=== PATIENT | male | born 1940 | race Caucasian/White ===

== ENCOUNTER 2019-10-23 12:57 | Inpatient (IN) ==
[2019-10-23] MEDS ORDERED: SODIUM CHLORIDE 0.9% 500 ML IV ONE (13:17)
--- NOTE | 2019-10-23 13:23 | Emergency Department Note ---
Impression & Plan SVT (supraventricular tachycardia), Syncope, Hypophosphatemia, Dehydration ED Provider Note NAME: MIREILLE JOHNSON AGE: 79 SEX: M ARRIVES VIA: Ambulance INFORMANT: Patient, ED PROVIDER(S): Jamel Madrid MD CHIEF COMPLAINT: SVT, syncope PLAN: Disposition: Admit MEDICAL DECISION MAKING: The patient is a pleasant 79-year-old gentleman who has not followed with a primary care doctor for many years denies any medical problems who presents emergency department after having syncopal episode when he was walking on [address] and was immediately assisted by bystanders with near immediate return of consciousness after he fell to the ground. Upon EMS evaluation he was found to be in SVT in the 180s with transient break after 6mg followed by 12 mg but with return to SVT. I did receive the med command call prior to arrival and instructed EMS to administer second 12 mg dose of adenosine but the patient again returned to SVT after transient break which did demonstrate sinus tachycardia. Patient has been given approximately 800 cc of IV fluids. He denies any recent fevers, chills, cough, congestion, nausea, vomiting, diarrhea, urinary symptoms. He denies any known contacts with individuals diagnosed with COVID-19. On arrival the patient reports fluttering in his chest but denies any chest pain shortness of breath, nausea, vomiting, diarrhea. He does report he has felt this fluttering in his chest for many years intermittently but never got it checked out. On arrival the patient is in no acute distress, afebrile with heart rate in the 170s and vital signs otherwise stable. The patient was coached to perform vagal maneuver with breath-holding and bearing down with subsequent conversion to sinus rhythm with frequent PVCs resolution of his sensation of fluttering. Patient's initial EKG demonstrated SVT with marked ST abnormalities that are likely rate related. Repeat EKG following conversion to sinus rhythm demonstrates improvement in prior ST abnormalities though with question of poor R wave progression versus LVH. Chest x-ray negative for acute process. WBC 4.7, nonspecific. H/H and platelets within normal limits. Chemistry without acidosis. BUN/Cr > 20 consistent with the patient's clinically dry appearance. Phosphorus 1.7 with repletion provided. Electrolytes and LFTs unremarkable. Initial troponin detectable but within normal limits at 0.019. Continue to remain in sinus rhythm and feeling improved after initial conversion to sinus rhythm. However, given the patient's syncope associated with SVT that was refractory to initial treatment with adenosine reasonable to admit the patient for further management. Patient is agreeable with this. Case was discussed with Adrianna Tellez, [facility] who will evaluate the patient for admission. Triage Nursing notes reviewed and agree them. Additional history obtained from EMS Prior medical records reviewed Vital Signs: reviewed and remarkable for tachycardia. Differential diagnosis: Vasovagal event, dehydration, infection, hypoglycemia, electrolyte abnormalities, cardiac sources, intracerebral event, pulmonary embolism, seizure, toxicologic, neurologic, as well as other pathologies. ER treatment provided: See below. Diagnostics interpreted by me: ECG 1304: SVT, 172 bpm, marked ST abnormality, no overt ST elevation, QTC 470, QRS 82. ECG 1310: Normal sinus rhythm with occasional PVCs, 88 bpm, poor R wave pr ogression versus LVH no overt ST elevation or depression, QTC 396, QRS 92. Cardiac Monitoring: An order for continuous cardiac monitoring was placed and demonstrated SVT, 88 bpm, PVCs Laboratory studies: See below Imaging studies: XR chest 1V portable CLINICAL HISTORY: Chest Pain dyspnea COMPARISON STUDY: No previous studies for comparison. FINDINGS: The bones soft tissues and hemidiaphragms are normal. The cardiome diastinal silhouette is normal. The lungs are clear. The pulmonary vasculature is normal. IMPRESSION: Negative chest. Consultation(s): Case was discussed with Adrianna Tellez, [facility] who will evaluate the patient for admission. HPI: The patient is a pleasant 79-year-old gentleman who has not followed with a primary care doctor for many years denies any medical problems who presents emergency department after having syncopal episode when he was walking on [place] and was immediately assisted by bystanders with near immediate return of consciousness after he fell to the ground. Upon EMS evaluation he was found to be in SVT in the 180s with transient break after 6mg followed by 12 mg but with return to SVT. I did receive the med command call prior to arrival and instructed EMS to administer second 12 mg dose of adenosine but the patient again returned to SVT after transient break which did demonstrate sinus tachycardia. Patient has been given approximately 800 cc of IV fluids. He denies any recent fevers, chills, cough, congestion, nausea, vomiting, diarrhea, urinary symptoms. He denies any known contacts with individuals diagnosed with COVID-19. ROS: See above HPI for pertinent positives & negatives. A total of 10 systems reviewed and were otherwise negative. PAST MEDICAL HISTORY:See Below PAST SURGICAL HISTORY:See Below FAMILY HISTORY:See Below SOCIAL HISTORY:See Below HOME MEDICATIONS:See Below ALLERGIES:See Below VITALS:See Below PHYSICAL EXAMINATION: GENERAL: Awake, alert, well-appearing, in no distress HENT: Normocephalic, atraumatic. Oropharynx with dry mucous membranes and otherwise unremarkable. EYES: Normal conjunctiva. Sclera non-icteric. NECK: Supple. No nuchal rigidity. FROM. No JVD. RESPIRATORY: Clear to auscultation. CARDIAC: Regular rate, normal rhythm. Extremities warm and well perfused. Pulses equal. ABDOMEN: Soft, non-distended. No tenderness to palpation. No rebound or guarding. No masses. RECTAL: Deferred. MUSCULOSKELETAL: Chest examination reveals no tenderness. The back is symmetrical on inspection without obvious abnormality. There is no CVA tenderness to palpation. No joint edema. LOWER EXTREMITIES: Calves are equal size bilaterally and non-tender. No edema. No discoloration. NEURO: Normal sensorium. No sensory or motor deficits noted. 5/5 strength and SILT x 4 extremities. Cerebellar function intact including [id number], alternating palms, [id number]. SKIN: No rash or jaundice noted. ED COURSE: Critical Care: I have personally spent greater than 35 minutes of critical care time in the direct management of this patient. This includes bedside care, interpretation of diagnostic studies, and testing, discussion with consultants, patient, and family members, and other required patient management activities. This 35 minutes is in excess of all separately billable procedures. Jamel Madrid MD Past Med/Surg History Surgical History No significant past surgical history Family History Brother Coronary heart disease [place] in age 50's Social History Preferred Language: [place] Communication Ability: Effective Member Of Technical Staff Required: No Beliefs That Will Affect Care: None Current Living Situation: Alone Feels Safe at Home: Yes Safety Concerns: Feels Safe At This Time Smoking Status: Never smoker Tobacco Type: smokeless tobacco ; Do You Dip or Chew Tobacco: Yes (for 60 years; quit in age 69's) ; Hx Alcohol Use: No Hx Substance Use: No Allergies Allergies Allergy/AdvReac Type Severity Reaction Status Date / Time No Known Allergies Allergy Unverified 10/23/19 13:53 Home Meds Home Medications Medication Instructions Recorded Confirmed naproxen sodium [Aleve] 220 mg PO BID PRN 10/23/19 10/23/19 Results & Data (ED) Vital Signs Vital Signs - 24 hr 10/23/19 13:04 10/23/19 13:10 10/23/19 13:15 Temperature 36.7 C Temperature Source Oral Pulse Rate 176 H 79 79 Pulse Rate from SpO2 Sensor 78 79 Respiratory Rate 18 18 19 Respiratory Effort / Characteristics Non-Labored Spontaneous Respiratory Depth Normal Blood Pressure 152/101 H 152/101 H 145/82 H Blood Pressure Mean 118 116 92 Blood Pressure Position Lying Pulse Oximetry 96 99 98 Oxygen Delivery Method Room Air Sepsis Recent Fever Within 48 Hours No Sepsis Action Taken by Nursing No Action Required 10/23/19 13:16 10/23/19 13:20 10/23/19 13:23 Temperature Temperature Source Pulse Rate 78 78 Pulse Rate from SpO2 Sensor 73 75 Respiratory Rate 19 15 Respiratory Effort / Characteristics Respiratory Depth Blood Pressure 137/87 Blood Pressure Mean 101 Blood Pressure Position Pulse Oximetry 98 97 96 Oxygen Delivery Method Room Air Sepsis Recent Fever Within 48 Hours Sepsis Action Taken by Nursing 10/23/19 13:25 10/23/19 13:30 10/23/19 13:31 Temperature Temperature Source Pulse Rate 78 83 76 Pulse Rate from SpO2 Sensor 80 69 77 Respiratory Rate 19 20 17 Respiratory Effort / Characteristics Respiratory Depth Blood Pressure 127/87 155/83 H Blood Pressure Mean 105 99 Blood Pressure Position Pulse Oximetry 96 98 98 Oxygen Delivery Method Sepsis Recent Fever Within 48 Hours Sepsis Action Taken by Nursing 10/23/19 13:36 10/23/19 13:40 10/23/19 13:43 Temperature Temperature Source Pulse Rate 79 77 76 Pulse Rate from SpO2 Sensor 75 77 76 Respiratory Rate 19 16 16 Respiratory Effort / Characteristics Respiratory Depth Blood Pressure 152/84 H 149/76 H 131/85 Blood Pressure Mean 94 84 98 Blood Pressure Position Pulse Oximetry 98 95 96 Oxygen Delivery Method Sepsis Recent Fever Within 48 Hours Sepsis Action Taken by Nursing 10/23/19 13:45 10/23/19 13:46 10/23/19 14:00 Temperature Temperature Source Pulse Rate 76 77 73 Pulse Rate from SpO2 Sensor 76 76 73 Respiratory Rate 16 15 15 Respiratory Effort / Characteristics Respiratory Depth Blood Pressure 140/85 145/80 H Blood Pressure Mean 98 98 Blood Pressure Position Pulse Oximetry 96 96 96 Oxygen Delivery Method Sepsis Recent Fever Within 48 Hours Sepsis Action Taken by Nursing 10/23/19 14:01 10/23/19 14:15 10/23/19 14:30 Temperature Temperature Source Pulse Rate 74 75 72 Pulse Rate from SpO2 Sensor 73 74 72 Respiratory Rate 15 14 15 Respiratory Effort / Characteristics Respiratory Depth Blood Pressure 130/80 146/92 H Blood Pressure Mean 92 112 Blood Pressure Position Pulse Oximetry 96 98 98 Oxygen Delivery Method Sepsis Recent Fever Within 48 Hours Sepsis Action Taken by Nursing 10/23/19 14:31 10/23/19 14:45 Temperature Temperature Source Pulse Rate 72 67 Pulse Rate from SpO2 Sensor 73 67 Respiratory Rate 23 17 Respiratory Effort / Characteristics Respiratory Depth Blood Pressure 131/79 Blood Pressure Mean 95 Blood Pressure Position Pulse Oximetry 98 97 Oxygen Delivery Method Sepsis Recent Fever Within 48 Hours Sepsis Action Taken by Nursing Laboratory Data Attestation: I reviewed the patient's lab results. Result diagrams: 10/23/19 13:15 10/23/19 13:15 Lab Results 10/23/19 10/23/19 10/23/19 Range/Units 13:15 13:15 13:15 WBC 4.75 L (4.8-10.8) K/uL RBC 4.93 (4.7-6.1) M/uL Hgb 15.1 (14.0-18.0) g/dL Hct 45.0 (42-52) % MCV 91.3 (80-100) fL MCH 30.6 (25-34) pg MCHC 33.6 (32-36) g/dL RDW Std Deviation 44.1 (36.4-46.3) fL RDW Coeff of Colin 13.4 (11.5-14.5) % Plt Count 236 (130-400) K/uL MPV 10.2 (7.4-10.4) fL Immature Gran % (Auto) 0.0 % Neut % (Auto) 66.8 % Lymph % (Auto) 14.7 % [place] % (Auto) 12.2 % Eos % (Auto) 5.7 % Baso % (Auto) 0.6 % Immature Gran # (Auto) 0.00 (0.00-0.02) K/uL Neut # (Auto) 3.17 (1.4-6.5) K/uL Lymph # (Auto) 0.70 L (1.2-3.4) K/uL [place] # (Auto) 0.58 (0.11-0.59) K/uL Eos # (Auto) 0.27 (0-0.5) K/uL Baso # (Auto) 0.03 (0-0.2) K/uL PT 10.6 (9.0-12.0) Seconds INR 1.0 (0.9-1.1) APTT 24.8 (21.0-31.0) Seconds PTT Ratio 0.9 Sodium 139 (136-145) mmol/L Potassium 4.2 (3.5-5.1) mmol/L Chloride 112 H (98-107) mmol/L Carbon Dioxide 21 (21-32) mmol/L Anion Gap 7.0 (3-11) BUN 33 H (7-18) mg/dl Creatinine 1.31 (0.6-1.4) mg/dl Est Cr Clr Drug Dosing 43.5 ml/min Est GFR ( Amer) 59.2 Est GFR (Non-Af Amer) 51.1 BUN/Creatinine Ratio 25.4 H (10-20) Glucose 116 H (70-99) mg/dl Calcium 8.8 (8.5-10.1) mg/dl Phosphorus 1.7 L (2.5-4.9) mg/dl Magnesium 2.2 (1.8-2.4) mg/dl Total Bilirubin 0.5 (0.2-1) mg/dl AST 21 (15-37) U/L ALT 18 (12-78) U/L Alkaline Phosphatase 77 (45-117) U/L Troponin I 0.019 (0-0.045) ng/ml Total Protein 7.0 (6.4-8.2) gm/dl Albumin 3.6 (3.4-5.0) gm/dl Globulin 3.4 (2.5-4.0) gm/dl Albumin/Globulin Ratio 1.0 (0.9-2) Lipase 164 (73-393) U/L TSH 1.790 (0.300-4.500) uIu/ml Administered Medications Heparin Sodium (Porcine) (Heparin Sodium (Porcine)) 5,000 units SQ Q8 SANDY Stop: 11/22/19 21:59 Last Admin: 10/23/19 20:46 Dose: 5,000 units Documented by: [id number] Cosigned by: [id number] Metoprolol Tartrate (Lopressor) 12.5 mg PO BID SANDY Stop: 11/22/19 20:59 Last Admin: 10/23/19 20:45 Dose: 12.5 mg Documented by: [id number] Discontinued Medications Sodium Chloride (Nss) 500 mls @ 999 mls/hr IV .Q31M ONE Stop: 10/23/19 13:47 Last Infusion: 10/23/19 14:49 Dose: 0 mls/hr Documented by: [id number] Admin: 10/23/19 14:10 Dose: 999 mls/hr Documented by: [id number] Potassium Phosphate 6 mmol/ (Sodium Chloride) 102 mls @ 88 mls/hr IV NOW ONE Stop: 10/23/19 16:09 Last Infusion: 10/23/19 16:31 Dose: 0 mls/hr Documented by: [id number] Admin: 10/23/19 15:21 Dose: 88 mls/hr Documented by: [id number] Potassium Phosphate 6 mmol/ (Sodium Chloride) 102 mls @ 88 mls/hr IV ONE ONE Stop: 10/23/19 19:54 Last Infusion: 10/23/19 21:00 Dose: 0 mls/hr Documented by: [id number] Admin: 10/23/19 19:50 Dose: 88 mls/hr Documented by: [id number] Potassium Phosphate (Potassium Phosphate Replace) 6 mmol IV NOW STA Stop: 10/23/19 14:13 Last Admin: 10/23/19 15:21 Dose: Not Given Documented by: [id number] Potassium Phosphate (Phospha 250 Neutral 155-852-130 Mg) 2 tab PO NOW STA Stop: 10/23/19 14:13 Last Admin: 10/23/19 14:59 Dose: 2 tab Documented by: [id number] Blood Pressure Blood Pressure Findings: Elevated blood pressure Blood Pressure Disposition: elevated BP felt to be situational Discharge Plan Visit Data *Final* Discharge Date/Time: 10/23/19 15:51 Chief Complaint: Cardiac Assessment ED Provider: Jamel Madrid Discharge Problem: SVT (supraventricular tachycardia), Syncope, Hypophosphatemia, Dehydration Patient Disposition: Still a Patient Discharge Instructions Interventions: ED Discharge Assessment Last Done: 10/23/19 15:51 Discharge Problem: Syncope Qualifiers: Syncope type: unspecified Qualified Code(s): R55 - Syncope and collapse
[2019-10-23 13:32] LABS: Basophils # (auto) 0.03 K/uL (0-0.2); Basophils % (auto) 0.6 %; Eosinophils # (auto) 0.27 K/uL (0-0.5); Eosinophils % (auto) 5.7 %; Hemoglobin 15.1 g/dL (14.0-18.0); Lymphocytes % (auto) 14.7 %; Mean Corpuscular Hemoglobin 30.6 pg (25-34); Mean Corpuscular Hgb Conc 33.6 g/dL (32-36); Mean Corpuscular Volume 91.3 fL (80-100); Mean Platelet Volume 10.2 fL (7.4-10.4); Monocytes # (auto) 0.58 K/uL (0.11-0.59); Monocytes % (auto) 12.2 %; Neutrophils # (auto) 3.17 K/uL (1.4-6.5); Neutrophils % (auto) 66.8 %; Platelet Count 236 K/uL (130-400); RDW Coefficient of Variation 13.4 % (11.5-14.5); RDW Standard Deviation 44.1 fL (36.4-46.3); Red Blood Count 4.93 M/uL (4.7-6.1); White Blood Count 4.75 K/uL (4.8-10.8)
[2019-10-23 13:47] LABS: Partial Thromboplastin Ratio 0.9; Partial Thromboplastin Time 24.8 Seconds (21.0-31.0); Prothrombin Time 10.6 Seconds (9.0-12.0)
[2019-10-23 13:49] LABS: Albumin Level 3.6 gm/dl (3.4-5.0); BUN Creatinine Ratio 25.4 (10-20); Calcium 8.8 mg/dl (8.5-10.1); Creatinine Clr Calc Pharmacy 43.5 ml/min; Est GFR (African American) 59.2; Est GFR (Non-African American) 51.1; Magnesium 2.2 mg/dl (1.8-2.4); Potassium 4.2 mmol/L (3.5-5.1)
[2019-10-23 14:00] LABS: Bilirubin,Total 0.5 mg/dl (0.2-1); Globulin 3.4 gm/dl (2.5-4.0); Phosphorus 1.7 mg/dl (2.5-4.9); Thyroid Stimulating Hormone 1.79 uIu/ml (0.300-4.500); Troponin I 0.019 ng/ml (0-0.045)
--- NOTE | 2019-10-23 14:03 | XRay Report ---
XR chest 1V portable CLINICAL HISTORY: Chest Pain dyspnea COMPARISON STUDY: No previous studies for comparison. FINDINGS: The bones soft tissues and hemidiaphragms are normal. The cardiomediastinal silhouette is n ormal. The lungs are clear. The pulmonary vasculature is normal. IMPRESSION: Negative chest. ACT 112: Negative or not required by law. The above report was generated using voice recognition software. It may contain grammatical, syntax or spelling errors. Electronically signed by: Azael Casey M.D. 10/23/2019 2:02 PM
[2019-10-23] MEDS ORDERED: POTASSIUM PHOS 3 MMOL/1 ML INFUSION IV STA ×2 (14:12→18:13)
[2019-10-23] MEDS ORDERED: POT PHOSPHATE MONOBASIC W/ SOD TAB PO STA (14:12)
--- NOTE | 2019-10-23 14:40 | Electrocardiogram Report ---
Test Reason : Blood Pressure : / mmHG Vent. Rate : 172 BPM Atrial Rate : 045 BPM P-R Int : 000 ms QRS Dur : 082 ms QT Int : 278 ms P-R-T Axes : 000 -23 164 degrees QTc Int : 470 ms Supraventricular tachycardia Marked ST abnormality, possible inferior subendocardial injury Abnormal ECG No previous ECGs available Confirmed by Ben Gore ([id number]) on 10/23/2019 2:40:30 PM Referred By: Confirmed By:Ben Gore
[2019-10-23] MEDS ORDERED: POTASSIUM PHOSPHATE 6 MMOL in 0.9 % SODIUM CHLORIDE 100 ML IV ONE ×2 (15:00→18:45)
--- NOTE | 2019-10-23 15:58 | History & Physical Report ---
Date of Service October 23, 2019 Assessment & Plan (1) SVT (supraventricular tachycardia): Pt is 79 y/o M without known significant PMH presented to ER via EMS for syncopal episode today. was walking outside when he started feeling dizzy and then pt woke up on ground. His neighbor saw him have syncopal episode and fall and was able to assist him up off the ground. EMS arrived and found pt in SVT. It is reported vagal maneuver attempted and unsuccessful and then pt was given adenosine 6mg with brief break in SVT, then followed by 12mg and additional 12mg adenosine with return to sinus rhythm. In ER pt afebrile, P: 176 down to 76, R: 18, BP: 152/101 to 140/85, 96% on RA. In ER pt with HR in 170's, SVT and vagal maneuver preformed with conversion to sinus rhythm. WBC: 4.75, H/H: 15/45, K: 4.2, Phosphate: 1.7, Magnesium: 2.2, TSH: 1.7, Troponin: 0.019 -Pt in current sinus rhythm. No further symptoms -Pt may be having paroxysmal SVT that has been previously undiagnosed with his description of intermittent symptoms over the years -Monitor on tele -trend troponin -echo -CBC, BMP, magnesium, phosphorus in am -Cardiology consult (2) Syncope: DDX: arrhythmia, symptomatic bradycardia, neurocardiogenic syncope, orthostatic hypotension No bradycardia noted while in ER -Monitor on tele (3) Hypophosphatemia: Phosphate: 1.7. -Replace and monitor DVT Prophylaxis -Heparin SQ DNR/DNI as per discussion with pt Does not have PCP for routine care Pt was seen and care coordinated with Charmaine. See addendum History of Present Illness Chief Complaint: syncope Primary Care Provider: NO PCP Pt is 79 y/o M without known significant PMH presented to ER via EMS for syncopal episode today. Pt reports for past 10 years has been having intermittent episodes of feeling hot, lightheaded/dizzy with "quivering" sensation to left chest that lasts approx 10 minutes and self resolves. Can occur with activity or rest. Pt states sometimes will have multiple episodes a day. Has never had any associated CP, SOB or syncope in past. Pt states today was fishing in the morning and had a hot and dizzy episode. Later today was walking outside when he started feeling dizzy and then pt woke up on ground. His neighbor saw him have syncopal episode and fall and was able to assist him up off the ground. EMS arrived and found pt in SVT. It is reported vagal maneuver attempted and unsuccessful and then pt was given adenosine 6mg with brief break in SVT, then followed by 12mg and additional 12mg adenosine with return to sinus rhythm. In ER pt with HR in 170's, SVT and vagal maneuver preformed with conversion to sinus rhythm. Pt states was having dizziness, sweats and palpitations but since arrival to ER that has resolved. Pt reports drinks 3 cups coffee daily. Takes [place] prn at HS for sleep and last took 2 days ago. Sometimes uses 1 OTC Aleve daily for leg pain. Denies other OTC med or herbal supplement use. Pt states not seen PCP since 2000. He reports in 1988 he had echo and exercise stress test for dizzy episodes, pt unsure of results. Denies any injury with fall. Denies fever/chills, diaphoresis, N/V/D/C, FIORE, vision changes, neck pain, orthopnea, cough, sore throat, choking, otalgia, rhinorrhea, abdominal pain, paresthesias, weakness, extremity weakness, extremity edema, rashes, urinary symptoms. Allergies Allergy/AdvReac Type Severity Reaction Status Date / Time No Known Allergies Allergy Unverified 10/23/19 13:53 Home Medications Home Medications Medication Instructions Recorded Confirmed Type naproxen sodium [Aleve] 220 mg PO BID PRN 10/23/19 10/23/19 History Past Med/Surg History Surgical History No significant past surgical history Family History Brother Coronary heart disease [place] in age 50's Social History Preferred Language: [place]inyar[place]anda Communication Ability: Effective Optimization Consultant Required: No Beliefs That Will Affect Care: None Current Living Situation: Alone Feels Safe at Home: Yes Safety Concerns: Feels Safe At This Time Smoking Status: Never smoker Tobacco Type: smokeless tobacco ; Do You Dip or Chew Tobacco: Yes (for 60 years; quit in age 69's) ; Hx Alcohol Use: No Hx Substance Use: No Review of Systems Review of Systems: All systems reviewed & are unremarkable except as noted in HPI & below Physical Exam Physical Exam: General: no distress, WDWN Head: normocephalic, atraumatic Eyes: PERRL, EOM's intact, conjunctiva non-injected, anicteric ENT: normal inspection external ears, nose, mucous membranes moist Neck: supple, trachea midline Lungs: clear, no respiratory distress, no wheezing/rhonchi/rales CV: RRR, no murmur, no pretibial edema Abd: normal BS, soft, non-tender Ext: no cyanosis, no calf tenderness Neuro: A&O x 3, no focal deficits noted, normal affect Skin: warm, dry Results & Data Results & Data ([facility]) Vital Signs (Past 12 Hours) Vital Signs Temp Pulse Resp BP Pulse Ox 10/23/19 14:45 67 17 131/79 97 10/23/19 14:31 72 23 98 10/23/19 14:30 72 15 146/92 H 98 10/23/19 14:15 75 14 130/80 98 10/23/19 14:01 74 15 96 10/23/19 14:00 73 15 145/80 H 96 10/23/19 13:46 77 15 96 10/23/19 13:45 76 16 140/85 96 10/23/19 13:43 76 16 131/85 96 10/23/19 13:40 77 16 149/76 H 95 10/23/19 13:36 79 19 152/84 H 98 10/23/19 13:31 76 17 155/83 H 98 10/23/19 13:30 83 20 98 10/23/19 13:25 78 19 127/87 96 10/23/19 13:23 96 10/23/19 13:20 78 15 137/87 97 10/23/19 13:16 78 19 98 10/23/19 13:15 79 19 145/82 H 98 10/23/19 13:10 79 18 152/101 H 99 10/23/19 13:04 36.7 C 176 H 18 152/101 H 96 Laboratory Results Short CBC 10/23/19 Range/Units 13:15 WBC 4.75 L (4.8-10.8) K/uL Hgb 15.1 (14.0-18.0) g/dL Hct 45.0 (42-52) % Plt Count 236 (130-400) K/uL BMP 10/23/19 13:15 Sodium 139 Potassium 4.2 Chloride 112 H Carbon Dioxide 21 BUN 33 H Creatinine 1.31 Glucose 116 H Calcium 8.8 Cardiac Enzymes 10/23/19 Range/Units 13:15 Troponin I 0.019 (0-0.045) ng/ml Liver Function 10/23/19 Range/Units 13:15 Total Bilirubin 0.5 (0.2-1) mg/dl AST 21 (15-37) U/L ALT 18 (12-78) U/L Alkaline Phosphatase 77 (45-117) U/L Albumin 3.6 (3.4-5.0) gm/dl Diagnostic Findings CXR: IMPRESSION: Negative chest. ECG Rate (beats per minute): 172 Rhythm: SVT Code Status & VTE Plan VTE Prophylaxis Plan VTE Prophylaxis will be ordered: Yes Supervising Physician Co-Signing Physician Notes I saw this patient with the physician diagnostic assistant, I participated in the history, physical, review of systems, and physical exam. I reviewed the medications with the patient and the physician diagnostic assistant and helped reconcile the medications. I helped take a detailed family and social history as well. I formulated the assessment and plan personally with the physician diagnostic assistant and went over it with the patient. ROS-No Headache, No Visual Changes, No Nausea, No Vomiting, No Fever, No Chills, No Neck Pain or Stiffness, No Chest Pain, No Palpitations, No SOB, No KEENAN, No Cough, No Sputum, No Wheezing, No Abdominal Pain, No Diarrhea, No Hematemesis, No Hemoptysis, No Unexpected Weight Loss, No Flank pain, No Melena, No Hematochezia, No Frequency, No Urgency, No Burning, No Hematuria, No Rashes, No Diaphoresis. Appetite is Normal Physical Exam Gen-AAO x 3, NAD, Afebrile Head-NCAT, EOMI, PERRLA, Anicteric Sclera, No Posterior Pharyngeal Erythema Neck-Supple, No JVD, No Thyromegaly, No Masses, No LAD, No Bruits Lungs-Clear to Auscultation Bilaterally, No Rales, No Rhonchi, No Wheezing, No Crepitus Chest-No S4, +S1, +S2, No S3, No Murmurs, No Rubs, No Gallops, No Ectopy Abdomen-Soft, Bowel Sounds Present, Non Tender, Non Distended, No Hepatomegaly, No Splenomegaly, No Palpable Masses, No Rebound, No Rigidity, No Guarding Musculoskeletal-Full Range of Motion Bilaterally, No CVAT Extremities-No Cyanosis, No Clubbing, No Edema Nuero-Cranial Nerves II-XII grossly intact, Motor WNL, DTRs WNL, Strength WNL, Non Focal Psych-Normal Mood
[2019-10-23] MEDS ORDERED: ACETAMINOPHEN 325 MG TAB PO PRN (16:35)
--- NOTE | 2019-10-23 16:49 | Electrocardiogram Report ---
Test Reason : Blood Pressure : / mmHG Vent. Rate : 088 BPM Atrial Rate : 088 BPM P-R Int : 174 ms QRS Dur : 092 ms QT Int : 328 ms P-R-T Axes : 048 -20 060 degrees QTc Int : 396 ms Sinus rhythm with occasional Premature ventricular complexes Poor R wave progression, consider anterior TN vs. lead placement vs. LVH Abnormal ECG When compared with ECG of 23-OCT-2019 13:04, Significant changes have occurred Confirmed by Ben Gore ([id number]) on 10/23/2019 4:48:47 PM Referred By: REFERRED SELF Confirmed By:Ben Gore
[2019-10-23] MEDS: METOPROLOL TARTRATE 25 MG TAB PO SCH (20:45)
[2019-10-23] MEDS: HEPARIN SOD 5,000 UNIT/0.5 ML VIAL SQ SCH (20:46)
[2019-10-24] MEDS: HEPARIN SOD 5,000 UNIT/0.5 ML VIAL SQ SCH ×3 (05:53→21:21)
[2019-10-24 06:00] LABS: Hematocrit (blood only) 42.6 % (42-52); Hemoglobin 14.1 g/dL (14.0-18.0); Mean Corpuscular Hemoglobin 29.9 pg (25-34); Mean Corpuscular Hgb Conc 33.1 g/dL (32-36); Mean Corpuscular Volume 90.4 fL (80-100); Mean Platelet Volume 9.8 fL (7.4-10.4); Platelet Count 227 K/uL (130-400); RDW Coefficient of Variation 13.2 % (11.5-14.5); RDW Standard Deviation 43.7 fL (36.4-46.3); Red Blood Count 4.71 M/uL (4.7-6.1); White Blood Count 4.06 K/uL (4.8-10.8)
[2019-10-24 06:40] LABS: Creatinine Clr Calc Pharmacy 59.2 ml/min; Est GFR (African American) 89.5; Est GFR (Non-African American) 77.3; Magnesium 1.9 mg/dl (1.8-2.4); Phosphorus 1.9 mg/dl (2.5-4.9)
[2019-10-24] MEDS: METOPROLOL TARTRATE 25 MG TAB PO SCH (08:36)
--- NOTE | 2019-10-24 09:43 | Cardiology Consultation ---
Date of Consultation October 24, 2019 Assessment & Plan (1) Syncope: (2) SVT (supraventricular tachycardia): Patient presents with SVT, syncope, that occurred yesterday while fishing. It is noted that yesterday was 1 of the most humid and warm days that we have had thus far this season. He notes years of dizziness, and transient "vibration" sensation in his chest, but this was his first syncopal episode. His troponin is minimally elevated at 0.067 and 0.053 ng/ml, which I do not think is surprising given the very high heart rates in the 170 to 180 bpm range which had been observed. Upsloping ST segment depression noted in the inferior lateral leads when he was having the tachycardia with very high rates, which is since normalized. Although the patient states that in the past he thinks he had "heart damage "his echocardiogram performed today reveals normal myocardial thickness, normal wall motion, no evidence of past NV, no cardiomyopathy. Metoprolol 12.5 mg twice daily was initiated last evening he has tolerated thus far. There has not been a documented recurrence of the narrow complex tachycardia, but a 14 beat run of wide-complex tachycardia occurred overnight during sleep, consistent with SVT with aberrant conduction versus nonsustained ventricular tachycardia. At present, I recommend ischemic evaluation with a pharmacologic nuclear stress test. I am hesitant to have him ambulate briskly on the treadmill for fear of recurrence of syncope on the treadmill. Given the significance of his arrhythmia, I think it is most prudent to proceed with sotalol initiation for its beta-parker and antiarrhythmic effect. His QTc on his present EKG was less than 400 ms. We will obtain another EKG now. Follow daily during planned 72-hour initiation of sotalol. History of Present Illness Reason for Consultation: Syncope, supraventricular tachycardia Attending Physician: Daniel Narayanan DO History of Present Illness Mr Tamayo is an 79 year old male seen in cardiology consultation per the request of Carolyn Guzmán PA-C and Dr Narayanan for the evaluation of syncope and supraventricular tachycardia. The patient states that he does not routinely follow with a physician. He has not on any medications. He lives in a camper and enjoys activities such as fishing. He states that for about 10 years he has been having episodes of on and off again dizziness. Yesterday he was fishing in the heat and had several episodes of feeling hot and dizzy. Yesterday he had 1 or 2 episodes while he was fishing. He went home, while talking to a neighbor, he had recurrence of his symptoms, and subsequently passed out. The next thing he knew he found himself on the ground. This is the first time he recalls having had such an episode that became severe enough that he passed out. He regained consciousness immediately. EMS arrived and he was found to be in a narrow complex tachycardia consistent with supraventricular tachycardia with rate of 180 bpm. His heart rate subsequently slowed down after 6 mg of IV adenosine, and then he received 12 mg of IV adenosine, with subsequent return to SVT. A second dose of 12 mg of adenosine was apparently administered, with ongoing SVT. He received IV fluids. When he arrived, per the emergency room notes he was in no acute distress but had persistent tachycardia, narrow complex tachycardia consistent with SVT as noted on recorded EKG 170 bpm range and with vagal maneuver, he converted to sinus rhythm with PVCs. He was admitted to telemetry for further assessment, with no recurrence of the narrow complex tachycardia last evening. He did have a 14 beat run of wide- complex tachycardia overnight last night with rate of 142 bpm consistent with possible nonsustained ventricular tachycardia versus supraventricular tachycardia with aberrant conduction. He had no chest pressure during the tachycardia event, but did note a sensation of feeling like his chest was "vibrating ". He states he has this from time to time especially when he lays down to go to sleep. He denies any recent anginal type symptoms, and denies any angina at the time of the event yesterday. He describes having his heart assessed in the past. 30 years ago he recalls being seen by a provider in [place]. He describes having had a "sonogram "of his heart with "27% damage "per his recollection. He has never had a heart catheterization. Past Medical History: No documented past medical history. Family History: Patient with 2 brothers both of whom he believes due to myocardial infarction in their 50s Social History: Lifelong non-smoker. Used to drink alcohol, but quit many years ago. Previous smokeless tobacco use, but quit several years ago. He lives by himself, independently, in a camper. 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 Allergies Allergy/AdvReac Type Severity Reaction Status Date / Time No Known Allergies Allergy Unverified 10/23/19 13:53 Home Medications Home Medications Medication Instructions Recorded Confirmed Type naproxen sodium [Aleve] 220 mg PO BID PRN 10/23/19 10/23/19 History Patient History Surgical History No significant past surgical history Family History Brother Coronary heart disease NV in age 50's Social History Preferred Language: Malay Communication Ability: Effective Computer Scientist Required: No Beliefs That Will Affect Care: None Current Living Situation: Alone Feels Safe at Home: Yes Safety Concerns: Feels Safe At This Time Smoking Status: Never smoker Tobacco Type: smokeless tobacco ; Do You Dip or Chew Tobacco: Yes (for 60 years; quit in age 69's) ; Hx Alcohol Use: No Hx Substance Use: No Review of Systems Review of Systems: All systems reviewed & are unremarkable except as noted in HPI & below Physical Exam Physical Exam: Temp Pulse Resp BP Pulse Ox 36.3 C L 62 16 155/89 H 97 10/24/19 07:38 10/24/19 07:38 10/24/19 07:38 10/24/19 07:38 10/24/19 07:38 Constitutional: WD/WN, vitals as above Neck: trachea midline, no thyromegaly Respiratory: normal respiratory effort, lungs clear to auscultation Cardiovascular: RRR, no murmur, no edema Neurologic: PERRL, EOMI, accommodation nl, no face palsy, no dysarthria Psychiatric: A+Ox3, euthymic affect Results & Data ([facility]) Vital Signs (Past 12 Hours) Vital Signs Temp Pulse Pulse Resp BP Pulse Ox 10/24/19 07:38 36.3 C L 62 16 155/89 H 97 10/24/19 04:07 36.9 C 60 18 153/78 H 99 10/23/19 23:46 37.0 C 57 L 18 148/74 H 96 10/23/19 23:39 63 Laboratory Results Cardiac Enzymes 10/23/19 10/23/19 10/24/19 Range/Units 13:15 19:05 01:02 AST 21 (15-37) U/L Troponin I 0.019 0.067 H* 0.053 H* (0-0.045) ng/ml Coagulation 10/23/19 Range/Units 13:15 PT 10.6 (9.0-12.0) Seconds APTT 24.8 (21.0-31.0) Seconds CBC 10/23/19 10/24/19 Range/Units 13:15 05:43 WBC 4.75 L 4.06 L (4.8-10.8) K/uL RBC 4.93 4.71 (4.7-6.1) M/uL Hgb 15.1 14.1 (14.0-18.0) g/dL Hct 45.0 42.6 (42-52) % Plt Count 236 227 (130-400) K/uL Neut # (Auto) 3.17 (1.4-6.5) K/uL Lymph # (Auto) 0.70 L (1.2-3.4) K/uL [place] # (Auto) 0.58 (0.11-0.59) K/uL Eos # (Auto) 0.27 (0-0.5) K/uL Baso # (Auto) 0.03 (0-0.2) K/uL Comprehensive Metabolic Panel 10/23/19 10/24/19 Range/Units 13:15 05:43 Sodium 139 141 (136-145) mmol/L Potassium 4.2 4.0 (3.5-5.1) mmol/L Chloride 112 H 112 H (98-107) mmol/L Carbon Dioxide 21 24 (21-32) mmol/L BUN 33 H 25 H (7-18) mg/dl Creatinine 1.31 0.93 D (0.6-1.4) mg/dl Glucose 116 H 90 (70-99) mg/dl Calcium 8.8 8.0 L (8.5-10.1) mg/dl AST 21 (15-37) U/L ALT 18 (12-78) U/L Alkaline Phosphatase 77 (45-117) U/L Total Protein 7.0 (6.4-8.2) gm/dl Albumin 3.6 (3.4-5.0) gm/dl Intake and Output 10/23/19 10/24/19 10/24/19 22:59 06:59 14:59 Intake Total 324 / 1824 Output Total 350 / 550 200 / 550 Balance -1273 -1273 Intake: IV 204 1704 Potassium Phosphate 6 Mmol In Sodium Chloride 100 ml @ 88 mls /hr IV ONE ONE Rx#:[id number] Oral 120 / 120 Output: Urine 350 / 550 200 / 550 Stool 0 / 0 Emesis 0 / 0 Other: Weight 72 kg 69 kg Diagnostic Findings Echocardiogram performed this morning reviewed independently revealed normal myocardial thickness, normal LV wall motion, normal LVEF. EKG performed 10/23/2019 at 1304 and reviewed independently revealed supraventricular tachycardia 170 bpm, with upsloping ST segment depression noted in the inferior and lateral leads. Repeat EKG performed 10/23/2019 at 1310: Sinus rhythm 88 bpm, with occasional PVCs, poor R wave progression. Previously noted ST segment depression has resolved. Medications Administered Current Inpatient Medications Acetaminophen (Tylenol) 650 mg PO Q4H PRN PRN Reason: Pain or Fever Stop: 11/22/19 16:34 Heparin Sodium (Porcine) (Heparin Sodium (Porcine)) 5,000 units SQ Q8 [facility] Stop: 11/22/19 21:59 Last Admin: 10/24/19 05:53 Dose: 5,000 units Documented by: Metoprolol Tartrate (Lopressor) 12.5 mg PO BID [facility] Stop: 11/22/19 20:59 Last Admin: 10/24/19 08:36 Dose: 12.5 mg Documented by: (1) Syncope Syncope type: unspecified Qualified Code(s): R55 - Syncope and collapse
--- NOTE | 2019-10-24 10:53 | Hospitalist Progress Note ---
Date of Service October 24, 2019 Assessment & Plan (1) SVT (supraventricular tachycardia): Pt is 79 y/o M without known significant PMH presented to ER via EMS for syncopal episode today. was walking outside when he started feeling dizzy and then pt woke up on ground. His neighbor saw him have syncopal episode and fall and was able to assist him up off the ground. EMS arrived and found pt in SVT. It is reported vagal maneuver attempted and unsuccessful and then pt was given adenosine 6mg with brief break in SVT, then followed by 12mg and additional 12mg adenosine with return to sinus rhythm. In ER pt afebrile, P: 176 down to 76, R: 18, BP: 152/101 to 140/85, 96% on RA. In ER pt with HR in 170's, SVT and vagal maneuver preformed with conversion to sinus rhythm. WBC: 4.75, H/H: 15/45, K: 4.2, Phosphate: 1.7, Magnesium: 2.2, TSH: 1.7, Troponin: 0.019 -14 beat run of wide-complex tachycardia occurred overnight during sleep, consistent with SVT with aberrant conduction versus nonsustained ventricular tachycardia. Nuc Stress test per Dr Mcintyre -Pt in current sinus rhythm. No further symptoms -Pt may be having paroxysmal SVT that has been previously undiagnosed with his description of intermittent symptoms over the years -Monitor on tele -trend troponin -echo -CBC, BMP, magnesium, phosphorus in am -Cardiology on case (2) Syncope: DDX: arrhythmia, symptomatic bradycardia, NSVT, neurocardiogenic syncope, orthostatic hypotension (3) Hypophosphatemia: Phosphate: Low -Replace and monitor DVT Prophylaxis -Heparin SQ DNR/DNI as per discussion with pt Does not have PCP for routine care ROS-No Headache, No Visual Changes, No Nausea, No Vomiting, No Fever, No Chills, No Neck Pain or Stiffness, No Chest Pain, No Palpitations, No SOB, No KEENAN, No Cough, No Sputum, No Wheezing, No Abdominal Pain, No Diarrhea, No Hematemesis, No Hemoptysis, No Unexpected Weight Loss, No Flank pain, No Melena, No Hematochezia, No Frequency, No Urgency, No Burning, No Hematuria, No Rashes, No Diaphoresis. Appetite is Normal Physical Exam Gen-AAO x 3, NAD, Afebrile Head-NCAT, EOMI, PERRLA, Anicteric Sclera, No Posterior Pharyngeal Erythema Neck-Supple, No JVD, No Thyromegaly, No Masses, No LAD, No Bruits Lungs-Clear to Auscultation Bilaterally, No Rales, No Rhonchi, No Wheezing, No Crepitus Chest-No S4, +S1, +S2, No S3, No Murmurs, No Rubs, No Gallops, No Ectopy Abdomen-Soft, Bowel Sounds Present, Non Tender, Non Distended, No Hepatomegaly, No Splenomegaly, No Palpable Masses, No Rebound, No Rigidity, No Guarding Musculoskeletal-Full Range of Motion Bilaterally, No CVAT Extremities-No Cyanosis, No Clubbing, No Edema Nuero-Cranial Nerves II-XII grossly intact, Motor WNL, DTRs WNL, Strength WNL, Non Focal Psych-Normal Mood Admission and Anticipated Discharge Date Admission Date: October 23, 2019 Results & Data Results & Data ([facility]) Vital Signs (Past 12 Hours) Vital Signs Temp Pulse Pulse Resp BP Pulse Ox 10/24/19 08:00 62 10/24/19 07:38 36.3 C L 62 16 155/89 H 97 10/24/19 04:07 36.9 C 60 18 153/78 H 99 10/23/19 23:46 37.0 C 57 L 18 148/74 H 96 10/23/19 23:39 63 (1) Syncope Syncope type: unspecified Qualified Code(s): R55 - Syncope and collapse
[2019-10-24] MEDS: POT PHOSPHATE MONOBASIC W/ SOD TAB PO SCH ×3 (15:34→21:21)
[2019-10-24] MEDS: SOTALOL HCL 80 MG TAB PO SCH (21:21)
[2019-10-25 04:08] LABS: Appearance Urine Clear (Clear); Bilirubin Urine Negative (Negative); Blood Urine Negative (Negative); Color Urine Yellow; Glucose Urine UA Negative (Negative); Ketones Urine 1+ (Negative); Leukocyte Esterase Urine Negative (Negative); Nitrite Urine Negative (Negative); Protein Urine Negative (Negative); Specific Gravity Urine 1.014 (1.000-1.030); Urobilinogen Urine Negative (Negative)
[2019-10-25] MEDS: HEPARIN SOD 5,000 UNIT/0.5 ML VIAL SQ SCH ×3 (05:39→20:37)
--- NOTE | 2019-10-25 06:24 | Electrocardiogram Report ---
Test Reason : Blood Pressure : / mmHG Vent. Rate : 056 BPM Atrial Rate : 056 BPM P-R Int : 172 ms QRS Dur : 092 ms QT Int : 432 ms P-R-T Axes : 053 -30 009 degrees QTc Int : 416 ms Sinus bradycardia Left axis deviation Abnormal ECG When compared with ECG of 23-OCT-2019 13:10, Premature ventricular complexes are no longer Present Vent. rate has decreased BY 32 BPM T wave inversion now evident in Inferior leads Confirmed by William Garcia ([id number]) on 10/25/2019 6:24:32 AM Referred By: REFERRED SELF Confirmed By:William Garcia
[2019-10-25 06:32] LABS: Hematocrit (blood only) 43.3 % (42-52); Hemoglobin 14.7 g/dL (14.0-18.0); Mean Corpuscular Hemoglobin 30.8 pg (25-34); Mean Corpuscular Hgb Conc 33.9 g/dL (32-36); Mean Corpuscular Volume 90.8 fL (80-100); Platelet Count 243 K/uL (130-400); RDW Coefficient of Variation 13.2 % (11.5-14.5); RDW Standard Deviation 43.7 fL (36.4-46.3); Red Blood Count 4.77 M/uL (4.7-6.1); White Blood Count 4.74 K/uL (4.8-10.8)
[2019-10-25 07:09] LABS: Albumin Level 3.1 gm/dl (3.4-5.0); BUN Creatinine Ratio 21.3 (10-20); Calcium 8.7 mg/dl (8.5-10.1); Creatinine Clr Calc Pharmacy 56.2 ml/min; Est GFR (African American) 84.1; Est GFR (Non-African American) 72.5
[2019-10-25 07:12] LABS: Bilirubin,Total 0.7 mg/dl (0.2-1); Globulin 3.1 gm/dl (2.5-4.0); Total Protein 6.2 gm/dl (6.4-8.2)
[2019-10-25] MEDS ORDERED: METOPROLOL TARTRATE 1 MG/ML VIAL IV STA (07:24)
[2019-10-25] MEDS ORDERED: METOPROLOL TARTRATE 1 MG/ML VIAL IV ONE (07:26)
--- NOTE | 2019-10-25 07:27 | Hospitalist Progress Note ---
Date of Service October 25, 2019 Assessment & Plan (1) SVT (supraventricular tachycardia): Pt is 79 y/o M without known significant PMH presented to ER via EMS for syncopal episode today. was walking outside when he started feeling dizzy and then pt woke up on ground. His neighbor saw him have syncopal episode and fall and was able to assist him up off the ground. EMS arrived and found pt in SVT. It is reported vagal maneuver attempted and unsuccessful and then pt was given adenosine 6mg with brief break in SVT, then followed by 12mg and additional 12mg adenosine with return to sinus rhythm. In ER pt afebrile, P: 176 down to 76, R: 18, BP: 152/101 to 140/85, 96% on RA. In ER pt with HR in 170's, SVT and vagal maneuver preformed with conversion to sinus rhythm. WBC: 4.75, H/H: 15/45, K: 4.2, Phosphate: 1.7, Magnesium: 2.2, TSH: 1.7, Troponin: 0.019 -14 beat run of wide-complex tachycardia occurred overnight 10/22 during sleep, consistent with SVT with aberrant conduction versus nonsustained ventricular tachycardia. Nuc Stress test per Dr Mcintyre today 10/24 -This morning I got called by RN that HR in 140s -Pt may be having paroxysmal SVT that has been previously undiagnosed with his description of intermittent symptoms over the years -Cardiology on case -NSS c K ordered (2) Syncope: w/u in progress (3) Hypophosphatemia: Phosphate: Low -Replace and monitor DVT Prophylaxis -Heparin SQ DNR/DNI Does not have PCP for routine care Will f/u c Cards on DC Labs checked ROS-No Headache, No Visual Changes, No Nausea, No Vomiting, No Fever, No Chills, No Neck Pain or Stiffness, No Chest Pain, No Palpitations, No SOB, No KEENAN, No Cough, No Sputum, No Wheezing, No Abdominal Pain, No Diarrhea, No Hematemesis, No Hemoptysis, No Unexpected Weight Loss, No Flank pain, No Melena, No Hematochezia, No Frequency, No Urgency, No Burning, No Hematuria, No Rashes, No Diaphoresis. Appetite is Normal Physical Exam Gen-AAO x 3, NAD, Afebrile Head-NCAT, EOMI, PERRLA, Anicteric Sclera, No Posterior Pharyngeal Erythema Neck-Supple, No JVD, No Thyromegaly, No Masses, No LAD, No Bruits Lungs-Clear to Auscultation Bilaterally, No Rales, No Rhonchi, No Wheezing, No Crepitus Chest-No S4, +S1, +S2, No S3, No Murmurs, No Rubs, No Gallops, No Ectopy Abdomen-Soft, Bowel Sounds Present, Non Tender, Non Distended, No Hepatomegaly, No Splenomegaly, No Palpable Masses, No Rebound, No Rigidity, No Guarding Musculoskeletal-Full Range of Motion Bilaterally, No CVAT Extremities-No Cyanosis, No Clubbing, No Edema Nuero-Cranial Nerves II-XII grossly intact, Motor WNL, DTRs WNL, Strength WNL, Non Focal Psych-Normal Mood Admission and Anticipated Discharge Date Admission Date: October 23, 2019 Results & Data Results & Data ([facility]) Vital Signs (Past 12 Hours) Vital Signs Temp Pulse Resp BP Pulse Ox 10/25/19 07:18 146 H 113/82 10/25/19 07:02 36.7 C 51 L 19 135/72 98 10/25/19 03:46 36.4 C L 60 16 122/68 97 10/24/19 23:09 36.9 C 60 16 107/60 96 10/24/19 21:30 65 125/76 (1) Syncope Syncope type: unspecified Qualified Code(s): R55 - Syncope and collapse
[2019-10-25] MEDS ORDERED: ADENOSINE IV SOLN 3 MG/ML 2 ML VIAL IV ONE (08:13)
[2019-10-25] MEDS ORDERED: ADENOSINE IV SOLN 3 MG/ML 2 ML VIAL IV STA ×4 (08:15→08:29)
[2019-10-25] MEDS: NSS + 20MEQ KCL 20 MEQ/1,000 ML BAG IV SCH ×2 (08:27→20:31)
--- NOTE | 2019-10-25 08:40 | Cardiology Progress Note ---
Date of Service October 25, 2019 Assessment & Plan (1) Syncope and collapse: (2) SVT (supraventricular tachycardia): Recurrent narrow complex tachycardia, onset 7:09 am. EKG performed prior this am, SB at 55 bpm, QTc 447 ms. Tachycardia refractory to metoprolol tartrate 5 mg IV x 1. At bedside personally at 8:20 am, 6 mg of IV adenosine administered without effect. 8:24 am, 12 mg IV adenosine with conversion to SB in 50's. No flutter waves. Telemetry consistent with SVT. Received sotalol 80 mg x 2 doses yesterday. Pt without any symptoms of angina with the event this am. At this time will observe for 30 minutes , and if HR stable proceed with 3rd dose of sotalol. Will discuss case with EP. Cancel nuclear stress test, yield felt to be low, as this is felt to be an arrhythmia issue not due to CAD. Continue SQ heparin for DVT prophylaxis. Subjective Patient comfortable. SR/SB in 50s overnight, At 7:09 am , recurrent onset of narrow complex tachycardia noted. Pt reported "quivering" in chest, same as past chronic episodes at home. Metoprolol tartrate 5 mg IV administred by nursing per my telephone order without effect. SVT at 130-150 bpm persisted. Physical Exam Physical Exam: Temp Pulse Resp BP Pulse Ox 36.7 C 64 19 129/71 98 10/25/19 07:02 10/25/19 08:28 10/25/19 07:02 10/25/19 08:28 10/25/19 07:02 Constitutional: WD/WN, vitals as above Respiratory: normal respiratory effort, lungs clear to auscultation Cardiovascular: Heart Sounds: no murmur tachycardic, resolved with adenosine Gastrointestinal (Abdomen): normal bowel sounds, soft, nontender, no hepatosplenomegaly Neurologic: PERRL, EOMI, accommodation nl, no face palsy, no dysarthria Results & Data Vital Signs (Past 12 Hours) Vital Signs Temp Pulse Pulse Resp BP BP Pulse Ox 10/25/19 08:28 64 129/71 10/25/19 07:57 108/75 10/25/19 07:34 148 H 115/76 10/25/19 07:18 146 H 113/82 10/25/19 07:02 36.7 C 51 L 19 135/72 98 05/29/20 03:46 36.4 C L 60 16 122/68 97 10/24/19 23:09 36.9 C 60 16 107/60 96 10/24/19 21:30 65 125/76 Laboratory Results Cardiac Enzymes 10/25/19 Range/Units 05:37 AST 15 (15-37) U/L CBC 10/25/19 Range/Units 05:37 WBC 4.74 L (4.8-10.8) K/uL RBC 4.77 (4.7-6.1) M/uL Hgb 14.7 (14.0-18.0) g/dL Hct 43.3 (42-52) % Plt Count 243 (130-400) K/uL Comprehensive Metabolic Panel 10/25/19 Range/Units 05:37 Sodium 139 (136-145) mmol/L Potassium 4.0 (3.5-5.1) mmol/L Chloride 108 H (98-107) mmol/L Carbon Dioxide 25 (21-32) mmol/L BUN 21 H (7-18) mg/dl Creatinine 0.98 (0.6-1.4) mg/dl Glucose 90 (70-99) mg/dl Calcium 8.7 (8.5-10.1) mg/dl AST 15 (15-37) U/L ALT 14 (12-78) U/L Alkaline Phosphatase 64 (45-117) U/L Total Protein 6.2 L (6.4-8.2) gm/dl Albumin 3.1 L (3.4-5.0) gm/dl Intake and Output 10/24/19 10/25/19 10/25/19 22:59 06:59 14:59 Intake Total 150 / 420 Output Total 575 / 1625 450 / 1625 Balance -425 / -1205 -450 / -1205 Intake: Oral 150 / 420 Output: Urine 575 / 1625 450 / 1625 Emesis 0 / 0 Other: Weight 67.8 kg
[2019-10-25] MEDS: SOTALOL HCL 80 MG TAB PO SCH ×2 (09:19→20:37)
[2019-10-25] MEDS: POT PHOSPHATE MONOBASIC W/ SOD TAB PO SCH ×4 (09:19→20:36)
--- NOTE | 2019-10-25 10:11 | Cardiology Consultation ---
Date of Consultation October 25, 2019 Assessment & Plan (1) Syncope and collapse: His presentation with syncope was almost certainly related to his SVT with an additional component of either dehydration from being out for a long time fishing or simply being on his feet for long period of time. It is entirely consistent with that including the rapid heart rate (his heart rate was much faster on arrival in the emergency room than it was when he had his episode this morning). (2) SVT (supraventricular tachycardia): He has a well-documented supraventricular tachycardia which he has had for probably on the order of 10 years, although it is worse over the last 6 months and especially more recently where he gets very frequent episodes including multiple episodes on the day he presented as well as an episode here in the hospital. 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 I discussed options with him including medical therapy and ablation. Given the rapid heart rate and the episode of syncope almost certainly related to the SVT, as well as his desire not to take medications on an ongoing basis, as well as the good success of ablation for this type of arrhythmia I think ablation is a very reasonable option. I have tentatively scheduled that for Monday and will discuss it in further detail with him prior to that. In the meantime he is on antiarrhythmic therapy and I will leave that for now to avoid further episodes over the weekend. History of Present Illness Reason for Consultation: SVT Requesting Physician: Dr. Mcintyre Attending Physician: Daniel Narayanan, History of Present Illness This is an 79-year-old male with a history of palpitations consistent with SVT however only diagnosed this visit evidently. He recalls a vibrating or fluttering sensation in his chest over the last 6 months or so, it has been becoming more frequent and while fishing on October 23, 2019 he had 4 episodes of it. After the third episode he went back home and was standing talking to his neighbor when he had it again, and transiently had syncope. He does not recall having that severe an episode before. Here in the emergency room he was identified as having SVT at a rate of 172 bpm, it was difficult to terminate both in the ambulance and here. He also had a recurrent episode here this morning. He does recall as a child having episodes of presyncope or possibly syncope while getting his haircut, it sounds as though that was related to having the drape around his neck tight and sounds like it might of been a vagal reaction from carotid pressure although it was never specifically diagnosed. He also describes a feeling of lightheadedness but perhaps not the vibrating or fluttering sensation over the last 10 years which he seems to feel it is the same thing as he is having now, although he seems to describe it a little bit differently. He also recalls when he was in the in 1957 he was told he had a heart murmur but no further evaluation and no problems related to it. Allergies Allergy/AdvReac Type Severity Reaction Status Date / Time No Known Allergies Allergy Unverified 10/23/19 13:53 Home Medications Home Medications Medication Instructions Recorded Confirmed Type naproxen sodium [Aleve] 220 mg PO BID PRN 10/23/19 10/23/19 History Patient History Surgical History No significant past surgical history Family History Brother Coronary heart disease [place] in age 50's Social History Preferred Language: Japanese Communication Ability: Effective Transformation Specialist Required: No Beliefs That Will Affect Care: None marital status: Current Living Situation: Alone Feels Safe at Home: Yes Safety Concerns: Feels Safe At This Time Smoking Status: Never smoker Tobacco Type: smokeless tobacco ; Do You Dip or Chew Tobacco: Yes (for 60 years; quit in age 69's) ; Hx Alcohol Use: No Hx Substance Use: No Physical Exam Physical Exam: Constitutional: Alert, cooperative and in no distress. HEENT: Unremarkable Neck: No jugular venous distention, carotid pulses are normal and equal bilaterally without bruits. Pulmonary: Clear to auscultation bilaterally. Cardiac: Regular rhythm with no murmur, gallop or rub. Abdomen: Soft, nontender with normal bowel sounds. Extremities: No edema. Distal pulses intact. Neurologic: No focal findings. Gait is steady. Skin: No rash, ecchymoses or petechiae. Results & Data ([facility]) Vital Signs (Past 12 Hours) Vital Signs Temp Pulse Pulse Resp BP BP Pulse Ox 10/25/19 08:28 64 129/71 10/25/19 08:20 113/82 10/25/19 07:57 108/75 10/25/19 07:34 148 H 115/76 10/25/19 07:18 146 H 113/82 10/25/19 07:02 36.7 C 51 L 19 135/72 98 10/25/19 03:46 36.4 C L 60 16 122/68 97 10/24/19 23:09 36.9 C 60 16 107/60 96 Laboratory Results Cardiac Enzymes 10/25/19 Range/Units 05:37 AST 15 (15-37) U/L CBC 10/25/19 Range/Units 05:37 WBC 4.74 L (4.8-10.8) K/uL RBC 4.77 (4.7-6.1) M/uL Hgb 14.7 (14.0-18.0) g/dL Hct 43.3 (42-52) % Plt Count 243 (130-400) K/uL Comprehensive Metabolic Panel 10/25/19 Range/Units 05:37 Sodium 139 (136-145) mmol/L Potassium 4.0 (3.5-5.1) mmol/L Chloride 108 H (98-107) mmol/L Carbon Dioxide 25 (21-32) mmol/L BUN 21 H (7-18) mg/dl Creatinine 0.98 (0.6-1.4) mg/dl Glucose 90 (70-99) mg/dl Calcium 8.7 (8.5-10.1) mg/dl AST 15 (15-37) U/L ALT 14 (12-78) U/L Alkaline Phosphatase 64 (45-117) U/L Total Protein 6.2 L (6.4-8.2) gm/dl Albumin 3.1 L (3.4-5.0) gm/dl Intake and Output 10/24/19 10/25/19 10/25/19 22:59 06:59 14:59 Intake Total 150 / 420 Output Total 575 / 1625 450 / 1625 Balance -425 / -1205 -450 / -1205 Intake: Oral 150 / 420 Output: Urine 575 / 1625 450 / 1625 Emesis 0 / 0 Other: Weight 67.8 kg Diagnostic Findings His presenting electrocardiogram on October 23, 2019 at 1304 shows a narrow complex tachycardia at a rate of 172 bpm. There appears to be atrial activity immediately following the QRS complex. There is lateral ST depression as well. A subsequent electrocardiogram done 4 minutes later shows sinus rhythm at 88 bpm with correction of the ST-T abnormalities. The ND interval was normal at 174 ms and there is no evidence of preexcitation. Another electrocardiogram done during SVT on October 25, 2019 at 7:20 AM shows a very similar SVT at a rate of 148 bpm with atrial activity once again present immediately after the QRS complex. Review of telemetry shows an episode of SVT this morning lasting about an hour, the rate is around 150 bpm varying only slightly. It starts with a premature atrial beat and terminates with antegrade block in the AV node (after receiving adenosine). PG Care Time/CCT Total # of Minutes Spent Total Time Spent with Patient: Total time spent is greater than 50% in coordination of care (as documented) at patient's floor/unit and/or counseling patient: Coding Level of Care Code 52945 Initial Inpt Care Lvl 3 Diagnoses Syncope and collapse R55 SVT (supraventricular tachycardia) I47.1
[2019-10-25] MEDS ORDERED: Nursing to Pharmacy Communication ONE (13:38)
--- NOTE | 2019-10-25 15:36 | Myocardial Perfusion Study ---
Date of Service October 25, 2019 Myocardial Perfusion Study [facility] Myocardial Perfusion Study Report Pierre Tamayo Date of : 1940 Date of study: 10/24/19 Inpatient study Indication: Syncope, supraventricular tachycardia, mild troponin elevation Resting images were performed with the patient receiving 21.461 mCi of technetium 99 Cardiolite injected intravenously at 1350 on 10/24/2019. 1 hour following the injection, imaging of the heart was performed in multiple projections. The resting resting myocardial perfusion was normal with no perfusion defects. Summary: Only the resting images were obtained. A 2-day protocol was planned. Stress test and stress images were to be performed on 10/25/2019. In the interim, the patient developed recurrent supraventricular tachycardia. The stress portion of the test was therefore canceled as it was felt that it would be most prudent to proceed with evaluation and treatment of the supraventricular tachycardia as a priority.
--- NOTE | 2019-10-25 16:54 | Electrocardiogram Report ---
Test Reason : Blood Pressure : / mmHG Vent. Rate : 055 BPM Atrial Rate : 055 BPM P-R Int : 172 ms QRS Dur : 084 ms QT Int : 468 ms P-R-T Axes : 061 -18 -03 degrees QTc Int : 447 ms Sinus bradycardia Otherwise normal ECG When compared with ECG of 24-OCT-2019 09:55, No significant change was found Confirmed by Ben Gore ([id number]) on 10/25/2019 4:53:57 PM Referred By: REFERRED SELF Confirmed By:Ben Gore
--- NOTE | 2019-10-25 16:57 | Electrocardiogram Report ---
Test Reason : Blood Pressure : / mmHG Vent. Rate : 148 BPM Atrial Rate : 227 BPM P-R Int : 000 ms QRS Dur : 082 ms QT Int : 306 ms P-R-T Axes : 000 -16 202 degrees QTc Int : 480 ms Supraventricular tachycardia Abnormal ECG When compared with ECG of 25-OCT-2019 06:24, (unconfirmed) Vent. rate has increased BY [address] now depressed in Inferior leads ST now depressed in Anterolateral leads T wave inversion now evident in Lateral leads Confirmed by Ben Gore ([id number]) on 10/25/2019 4:57:10 PM Referred By: REFERRED SELF Confirmed By:Ben Gore
[2019-10-26] MEDS: HEPARIN SOD 5,000 UNIT/0.5 ML VIAL SQ SCH ×3 (05:29→21:10)
[2019-10-26 06:20] LABS: Hematocrit (blood only) 43.3 % (42-52); Hemoglobin 14.5 g/dL (14.0-18.0); Mean Corpuscular Hemoglobin 30.3 pg (25-34); Mean Corpuscular Hgb Conc 33.5 g/dL (32-36); Mean Corpuscular Volume 90.6 fL (80-100); Mean Platelet Volume 10.1 fL (7.4-10.4); Platelet Count 240 K/uL (130-400); RDW Coefficient of Variation 13.3 % (11.5-14.5); RDW Standard Deviation 44.2 fL (36.4-46.3); Red Blood Count 4.78 M/uL (4.7-6.1); White Blood Count 4.19 K/uL (4.8-10.8)
[2019-10-26 06:39] LABS: Albumin Level 3.1 gm/dl (3.4-5.0); BUN Creatinine Ratio 25.9 (10-20); Calcium 8.3 mg/dl (8.5-10.1); Creatinine Clr Calc Pharmacy 54.5 ml/min; Est GFR (Non-African American) 69.9; Potassium 4.2 mmol/L (3.5-5.1)
[2019-10-26 06:42] LABS: Bilirubin,Total 0.5 mg/dl (0.2-1); Globulin 3.1 gm/dl (2.5-4.0); Total Protein 6.2 gm/dl (6.4-8.2)
--- NOTE | 2019-10-26 06:57 | Hospitalist Progress Note ---
Date of Service October 26, 2019 Assessment & Plan (1) SVT (supraventricular tachycardia): Pt is 79 y/o M without known significant PMH presented to ER via EMS for syncopal episode today. was walking outside when he started feeling dizzy and then pt woke up on ground. His neighbor saw him have syncopal episode and fall and was able to assist him up off the ground. EMS arrived and found pt in SVT. It is reported vagal maneuver attempted and unsuccessful and then pt was given adenosine 6mg with brief break in SVT, then followed by 12mg and additional 12mg adenosine with return to sinus rhythm. In ER pt afebrile, P: 176 down to 76, R: 18, BP: 152/101 to 140/85, 96% on RA. In ER pt with HR in 170's, SVT and vagal maneuver preformed with conversion to sinus rhythm. WBC: 4.75, H/H: 15/45, K: 4.2, Phosphate: 1.7, Magnesium: 2.2, TSH: 1.7, Troponin: 0.019 -14 beat run of wide-complex tachycardia occurred overnight 10/22 during sleep, consistent with SVT with aberrant conduction versus nonsustained ventricular tachycardia. Nuc Stress test deferred, EP consulted -10/24 morning I got called by RN that HR in 140s, She got Adenosine by Dr Mcintyre, on Sotolol and HR was into the 40s -Pt may be having paroxysmal SVT that has been previously undiagnosed with his description of intermittent symptoms over the years -Cardiology and EP on case -labs pending (2) Syncope: Secondary to arrhythmia, Possible SSS (3) Hypophosphatemia: Phosphate: Low -Replace and monitor prn DVT Prophylaxis -Heparin SQ DNR/DNI Does not have PCP for routine care, wants a [facility] PCP Will f/u c Cards on DC Labs checked ROS-No Headache, No Visual Changes, No Nausea, No Vomiting, No Fever, No Chills, No Neck Pain or Stiffness, No Chest Pain, No Palpitations, No SOB, No KEENAN, No Cough, No Sputum, No Wheezing, No Abdominal Pain, No Diarrhea, No Hematemesis, No Hemoptysis, No Unexpected Weight Loss, No Flank pain, No Melena, No Hematochezia, No Frequency, No Urgency, No Burning, No Hematuria, No Rashes, No Diaphoresis. Appetite is Normal Physical Exam Gen-AAO x 3, NAD, Afebrile Head-NCAT, EOMI, PERRLA, Anicteric Sclera, No Posterior Pharyngeal Erythema Neck-Supple, No JVD, No Thyromegaly, No Masses, No LAD, No Bruits Lungs-Clear to Auscultation Bilaterally, No Rales, No Rhonchi, No Wheezing, No Crepitus Chest-No S4, +S1, +S2, No S3, No Murmurs, No Rubs, No Gallops, No Ectopy Abdomen-Soft, Bowel Sounds Present, Non Tender, Non Distended, No Hepatomegaly, No Splenomegaly, No Palpable Masses, No Rebound, No Rigidity, No Guarding Musculoskeletal-Full Range of Motion Bilaterally, No CVAT Extremities-No Cyanosis, No Clubbing, No Edema Nuero-Cranial Nerves II-XII grossly intact, Motor WNL, DTRs WNL, Strength WNL, Non Focal Psych-Normal Mood Admission and Anticipated Discharge Date Admission Date: October 23, 2019 Results & Data Results & Data ([facility]) Vital Signs (Past 12 Hours) Vital Signs Temp Pulse Resp BP Pulse Ox 10/26/19 03:34 36.4 C L 49 L 18 117/68 97 10/25/19 23:31 37 C 52 L 16 115/64 96 10/25/19 19:09 37.0 C 58 L 19 130/74 96 (1) Syncope Syncope type: unspecified Qualified Code(s): R55 - Syncope and collapse
[2019-10-26] MEDS: NSS + 20MEQ KCL 20 MEQ/1,000 ML BAG IV SCH ×2 (08:10→19:44)
[2019-10-26] MEDS: SOTALOL HCL 80 MG TAB PO SCH ×2 (10:40→21:10)
--- NOTE | 2019-10-26 11:48 | Cardiology Progress Note ---
Date of Service October 26, 2019 Assessment & Plan (1) Syncope and collapse: (2) SVT (supraventricular tachycardia): QTc within acceptable range. Continue sotalol 80 mg twice daily. Case discussed with electrophysiology. Plan for ablation/slow pathway modification 10/28/2019. Patient will be made n.p.o. except medications after midnight 10/27/2019. Continue telemetry monitoring. Subjective Patient seen and examined the bedside. Remains in sinus rhythm on telemetry. Feeling well from a cardiovascular perspective today. Denies chest pain, palpitations, or unusual shortness of breath. Resting comfortably. Tolerated diet and medications. Offers no concerns/complaints at this time. Review of Systems Review of Systems: All systems reviewed & are unremarkable except as noted in HPI & below Physical Exam Constitutional: well developed and well nourished; no acute distress and not ill appearing Respiratory: normal respiratory effort; no respiratory distress, no labored breathing, no retractions and does not use accessory muscles Cardiovascular: Rate/Rhythm: regular rate, regular rhythm and + bradycardic Heart Sounds: normal S1 and normal S2; no murmur Vessels: no JVD and no carotid bruit Extremities: no edema Gastrointestinal (Abdomen): Inspection/Auscultation: abdomen normal to inspection and normal bowel sounds; abdomen not distended Percussion/Palpation: abdomen soft; abdomen nontender, no guarding and abdomen not rigid Musculoskeletal: Extremities: strength 5/5 throughout Skin: no rashes, warm and dry Neurologic: moves all extremities; no focal motor deficits Speech / Cognition: normal speech Motor/Sensory: no tremor Psychiatric: A+Ox3, euthymic affect Results & Data Vital Signs (Past 12 Hours) Vital Signs Temp Pulse Resp BP Pulse Ox 10/26/19 11:11 36.5 C 52 L 18 140/80 97 10/26/19 07:18 36.7 C 49 L 19 149/82 H 97 10/26/19 03:34 36.4 C L 49 L 18 117/68 97
--- NOTE | 2019-10-26 14:44 | Cardiology Progress Note ---
Date of Service October 26, 2019 Assessment & Plan (1) Syncope and collapse: His presentation with syncope was almost certainly related to his SVT with an additional component of either dehydration from being out for a long time fishing or simply being on his feet for long period of time. It is entirely consistent with that including the rapid heart rate (his heart rate was much faster on arrival in the emergency room than it was when he had his episode during this hospitalization). He has had no further syncopal or presyncopal episodes during his hospitalization. (2) SVT (supraventricular tachycardia): He has a well-documented supraventricular tachycardia which he has had for probably on the order of 10 years, although it is worse over the last 6 months and especially more recently where he gets very frequent episodes including multiple episodes on the day he presented as well as an episode here in the hospital. 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 I discussed options with him including medical therapy and ablation. Given the rapid heart rate and the episode of syncope almost certainly related to the SVT, as well as his desire not to take medications on an ongoing basis, as well as the good success of ablation for this type of arrhythmia I think ablation is a very reasonable option. I have tentatively scheduled that for Monday and will discuss it in further detail with him prior to that. In the meantime he is on sotalol therapy and I will leave that for now to avoid further episodes over the weekend. Admission and Anticipated Discharge Date Admission Date: October 23, 2019 Subjective He is feeling well today, he feels much better than he did yesterday morning when he had his SVT. He has no complaints today. Physical Exam Physical Exam: Constitutional: Alert, cooperative and in no distress. HEENT: Unremarkable Neck: No jugular venous distention, carotid pulses are normal and equal bilaterally without bruits. Pulmonary: Clear to auscultation bilaterally. Cardiac: Regular rhythm with no murmur, gallop or rub. Abdomen: Soft, nontender with normal bowel sounds. Extremities: No edema. Distal pulses intact. Neurologic: No focal findings. Gait is steady. Skin: No rash, ecchymoses or petechiae. Results & Data ([facility]) Vital Signs (Past 12 Hours) Vital Signs Temp Pulse Resp BP Pulse Ox 10/26/19 11:11 36.5 C 52 L 18 140/80 97 10/26/19 07:18 36.7 C 49 L 19 149/82 H 97 10/26/19 03:34 36.4 C L 49 L 18 117/68 97 Laboratory Results Cardiac Enzymes 10/26/19 Range/Units 05:52 AST 13 L (15-37) U/L CBC 10/26/19 Range/Units 05:52 WBC 4.19 L (4.8-10.8) K/uL RBC 4.78 (4.7-6.1) M/uL Hgb 14.5 (14.0-18.0) g/dL Hct 43.3 (42-52) % Plt Count 240 (130-400) K/uL Comprehensive Metabolic Panel 10/26/19 Range/Units 05:52 Sodium 140 (136-145) mmol/L Potassium 4.2 (3.5-5.1) mmol/L Chloride 112 H (98-107) mmol/L Carbon Dioxide 25 (21-32) mmol/L BUN 26 H (7-18) mg/dl Creatinine 1.01 (0.6-1.4) mg/dl Glucose 105 H (70-99) mg/dl Calcium 8.3 L (8.5-10.1) mg/dl AST 13 L (15-37) U/L ALT 15 (12-78) U/L Alkaline Phosphatase 61 (45-117) U/L Total Protein 6.2 L (6.4-8.2) gm/dl Albumin 3.1 L (3.4-5.0) gm/dl Intake and Output 10/25/19 10/26/19 10/26/19 22:59 06:59 14:59 Intake Total 1220 / 1440 0 / 1440 1670.25 / 1670.25 Output Total 200 / 400 1200 / 1200 Balance 1220 / 1040 -200 / 1040 470.25 / 470.25 Intake: IV 1000 / 1000 990.25 / 990.25 NORMAL SALINE w/20 MEQ KCL 20 1000 / 1000 990.25 / 990.25 meq In 1,000 ml @ 85 mls/hr IV .[id number] [facility] Rx#:[id number] Oral 220 / 440 0 / 440 680 / 680 Output: Urine 200 / 400 1200 / 1200 Other: Weight 69.4 kg Diagnostic Findings Telemetry: Sinus bradycardia, no further SVT since the morning of October 25, 2019. PG Care Time/CCT Total # of Minutes Spent Total Time Spent with Patient: Total time spent is greater than 50% in coordination of care (as documented) at patient's floor/unit and/or counseling patient: Coding Level of Care Code 27495 Subseq Hosp Care Lvl 2 Diagnoses Syncope and collapse R55 SVT (supraventricular tachycardia) I47.1
[2019-10-27 05:49] LABS: Hematocrit (blood only) 40.9 % (42-52); Hemoglobin 13.6 g/dL (14.0-18.0); Mean Corpuscular Hemoglobin 30.1 pg (25-34); Mean Corpuscular Hgb Conc 33.3 g/dL (32-36); Mean Corpuscular Volume 90.5 fL (80-100); Mean Platelet Volume 10.1 fL (7.4-10.4); Platelet Count 222 K/uL (130-400); RDW Coefficient of Variation 13.2 % (11.5-14.5); RDW Standard Deviation 43.4 fL (36.4-46.3); Red Blood Count 4.52 M/uL (4.7-6.1); White Blood Count 4.24 K/uL (4.8-10.8)
[2019-10-27 06:30] LABS: BUN Creatinine Ratio 15.6 (10-20); Creatinine Clr Calc Pharmacy 53.5 ml/min; Est GFR (African American) 79.1; Est GFR (Non-African American) 68.3; Potassium 4.5 mmol/L (3.5-5.1)
[2019-10-27] MEDS: NSS + 20MEQ KCL 20 MEQ/1,000 ML BAG IV SCH (06:41)
[2019-10-27] MEDS: HEPARIN SOD 5,000 UNIT/0.5 ML VIAL SQ SCH ×3 (06:41→20:04)
--- NOTE | 2019-10-27 06:42 | Hospitalist Progress Note ---
Date of Service October 27, 2019 Assessment & Plan (1) SVT (supraventricular tachycardia): Pt is 79 y/o M without known significant PMH presented to ER via EMS for syncopal episode today. was walking outside when he started feeling dizzy and then pt woke up on ground. His neighbor saw him have syncopal episode and fall and was able to assist him up off the ground. EMS arrived and found pt in SVT. It is reported vagal maneuver attempted and unsuccessful and then pt was given adenosine 6mg with brief break in SVT, then followed by 12mg and additional 12mg adenosine with return to sinus rhythm. In ER pt afebrile, P: 176 down to 76, R: 18, BP: 152/101 to 140/85, 96% on RA. In ER pt with HR in 170's, SVT and vagal maneuver preformed with conversion to sinus rhythm. WBC: 4.75, H/H: 15/45, K: 4.2, Phosphate: 1.7, Magnesium: 2.2, TSH: 1.7, Troponin: 0.019 -14 beat run of wide-complex tachycardia occurred overnight 10/22 during sleep, consistent with SVT with aberrant conduction versus nonsustained ventricular tachycardia. Nuc Stress test deferred, EP consulted -10/24 morning I got called by RN that HR in 140s, She got Adenosine by Dr Mcintyre, on Sotalol and HR is into the 40s -Pt may be having paroxysmal SVT that has been previously undiagnosed with his description of intermittent symptoms over the years -Cardiology and EP on case -Looks like possible DC Monday (2) Syncope: Secondary to arrhythmia, Possible SSS (3) Hypophosphatemia: Phosphate: Low -Replace and monitor prn DVT Prophylaxis -Heparin SQ DNR/DNI Does not have PCP for routine care, wants a [facility] PCP Will f/u c Cards on DC Labs checked ROS-No Headache, No Visual Changes, No Nausea, No Vomiting, No Fever, No Chills, No Neck Pain or Stiffness, No Chest Pain, No Palpitations, No SOB, No KEENAN, No Cough, No Sputum, No Wheezing, No Abdominal Pain, No Diarrhea, No Hematemesis, No Hemoptysis, No Unexpected Weight Loss, No Flank pain, No Melena, No Hematochezia, No Frequency, No Urgency, No Burning, No Hematuria, No Rashes, No Diaphoresis. Appetite is Normal Physical Exam Gen-AAO x 3, NAD, Afebrile Head-NCAT, EOMI, PERRLA, Anicteric Sclera, No Posterior Pharyngeal Erythema Neck-Supple, No JVD, No Thyromegaly, No Masses, No LAD, No Bruits Lungs-Clear to Auscultation Bilaterally, No Rales, No Rhonchi, No Wheezing, No Crepitus Chest-No S4, +S1, +S2, No S3, No Murmurs, No Rubs, No Gallops, No Ectopy Abdomen-Soft, Bowel Sounds Present, Non Tender, Non Distended, No Hepatomegaly, No Splenomegaly, No Palpable Masses, No Rebound, No Rigidity, No Guarding Musculoskeletal-Full Range of Motion Bilaterally, No CVAT Extremities-No Cyanosis, No Clubbing, No Edema Nuero-Cranial Nerves II-XII grossly intact, Motor WNL, DTRs WNL, Strength WNL, Non Focal Psych-Normal Mood Admission and Anticipated Discharge Date Admission Date: October 23, 2019 Anticipated date of discharge: 10/29/19 Results & Data Results & Data ([facility]) Vital Signs (Past 12 Hours) Vital Signs Temp Pulse Resp BP Pulse Ox 10/27/19 03:30 36.7 C 50 L 16 126/69 97 10/26/19 23:31 36.9 C 56 L 16 123/70 96 10/26/19 19:13 36.6 C 61 18 148/76 H 98 (1) Syncope Syncope type: unspecified Qualified Code(s): R55 - Syncope and collapse
--- NOTE | 2019-10-27 07:30 | Electrocardiogram Report ---
Test Reason : Blood Pressure : / mmHG Vent. Rate : 050 BPM Atrial Rate : 050 BPM P-R Int : 176 ms QRS Dur : 092 ms QT Int : 482 ms P-R-T Axes : 047 -17 -03 degrees QTc Int : 439 ms Sinus bradycardia Inferior infarct , age undetermined Abnormal ECG When compared with ECG of 25-OCT-2019 07:21, Vent. rate has decreased BY [address] no longer depressed in Inferior leads ST no longer depressed in Anterolateral leads T wave inversion no longer evident in Lateral leads Supraventricular tachycardia is no longer Present Confirmed by Samuel Olivares ([id number]) on 10/27/2019 7:30:25 AM Referred By: REFERRED SELF Confirmed By:Samuel Olivares
--- NOTE | 2019-10-27 08:37 | Cardiology Progress Note ---
Date of Service October 27, 2019 Assessment & Plan (1) Syncope and collapse: His presentation with syncope was almost certainly related to his SVT with an additional component of either dehydration from being out for a long time fishing or simply being on his feet for long period of time. It is entirely consistent with that including the rapid heart rate (his heart rate was much faster on arrival in the emergency room than it was when he had his episode during this hospitalization). He has had no further syncopal or presyncopal episodes during his hospitalization. (2) SVT (supraventricular tachycardia): He has a well-documented supraventricular tachycardia which he has had for probably on the order of 10 years, although it is worse over the last 6 months and especially more recently where he gets very frequent episodes including multiple episodes on the day he presented as well as several episodes here in the hospital. 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 I discussed options with him including medical therapy and ablation. Given the rapid heart rate and the episode of syncope almost certainly related to the SVT, as well as his desire not to take medications on an ongoing basis, as well as the good success of ablation for this type of arrhythmia with minimal risk I think ablation is a very reasonable option. I have tentatively scheduled that for October 28, 2019 and I did discuss the indications, procedure, risks and alternatives of ablation with him and he understands and agrees to proceed. Consent obtained. I also discussed sedation and he is agreeable. I also informed him that Dr. Tijerina will be doing the procedure tomorrow and he is agreeable. I am going to discontinue his sotalol. Admission and Anticipated Discharge Date Admission Date: October 23, 2019 Anticipated date of discharge: 10/29/19 Subjective Today he is feeling well. He did have a brief episode of SVT last evening of which he was unaware but it was quite brief. He is sitting at his bedside. Physical Exam Physical Exam: Constitutional: Alert, cooperative and in no distress. HEENT: Unremarkable Neck: No jugular venous distention, carotid pulses are normal and equal bilaterally without bruits. Pulmonary: Clear to auscultation bilaterally. Cardiac: Regular rhythm with no murmur, gallop or rub. Abdomen: Soft, nontender with normal bowel sounds. Extremities: No edema. Distal pulses intact. Neurologic: No focal findings. Gait is steady. Skin: No rash, ecchymoses or petechiae. Results & Data ([facility]) Vital Signs (Past 12 Hours) Vital Signs Temp Pulse Resp BP Pulse Ox 10/27/19 06:53 36.7 C 51 L 20 146/75 H 97 10/27/19 03:30 36.7 C 50 L 16 126/69 97 10/26/19 23:31 36.9 C 56 L 16 123/70 96 Laboratory Results CBC 10/27/19 Range/Units 05:30 WBC 4.24 L (4.8-10.8) K/uL RBC 4.52 L (4.7-6.1) M/uL Hgb 13.6 L (14.0-18.0) g/dL Hct 40.9 L (42-52) % Plt Count 222 (130-400) K/uL Comprehensive Metabolic Panel 10/27/19 Range/Units 05:30 Sodium 143 (136-145) mmol/L Potassium 4.5 (3.5-5.1) mmol/L Chloride 113 H (98-107) mmol/L Carbon Dioxide 29 (21-32) mmol/L BUN 16 (7-18) mg/dl Creatinine 1.03 (0.6-1.4) mg/dl Glucose 93 (70-99) mg/dl Calcium 8.0 L (8.5-10.1) mg/dl Intake and Output 10/26/19 10/27/19 10/27/19 22:59 06:59 14:59 Intake Total 1403.167 / 4173.417 1100 / 4173.417 1000 / 1000 Output Total 1275 / 2475 Balance 128.167 / 2458.779 9628 / 1553.489 8754 / 1000 Intake: IV 983.167 / 2973.417 1000 / 2973.417 1000 / 1000 NORMAL SALINE w/20 MEQ KCL 20 983.167 / 2973.417 1000 / 2973.417 1000 / 1000 meq In 1,000 ml @ 85 mls/hr IV .[id number] [facility] Rx#:[id number] Oral 420 / 1200 100 / 1200 Output: Urine 1275 / 2475 Other: Weight 69.5 kg Diagnostic Findings Telemetry: One brief episode of SVT consistent with typical AV antony reentry. This did not require adenosine for termination. Otherwise sinus bradycardia. PG Care Time/CCT Total # of Minutes Spent Total Time Spent with Patient: Total time spent is greater than 50% in coordination of care (as documented) at patient's floor/unit and/or counseling patient: Coding Level of Care Code 50573 Subseq Hosp Care Lvl 3 Diagnoses Syncope and collapse R55 SVT (supraventricular tachycardia) I47.1
[2019-10-27] MEDS: SOTALOL HCL 80 MG TAB PO SCH (09:07)
--- NOTE | 2019-10-27 11:57 | Electrocardiogram Report ---
Test Reason : Blood Pressure : / mmHG Vent. Rate : 050 BPM Atrial Rate : 050 BPM P-R Int : 176 ms QRS Dur : 084 ms QT Int : 476 ms P-R-T Axes : 069 006 032 degrees QTc Int : 433 ms Sinus bradycardia Otherwise normal ECG When compared with ECG of 26-OCT-2019 07:10, Criteria for Inferior infarct are no longer Present Nonspecific T wave abnormality has replaced inverted T waves in Inferior leads Confirmed by Samuel Olivares ([id number]) on 10/27/2019 11:57:05 AM Referred By: REFERRED SELF Confirmed By:Samuel Olivares
--- NOTE | 2019-10-27 12:20 | Cardiology Progress Note ---
Date of Service October 27, 2019 Assessment & Plan (1) Syncope and collapse: (2) SVT (supraventricular tachycardia): EPS study/slow pathway modification scheduled tomorrow 10/28/2019. QT interval within normal limits. Continue sotalol 80 mg twice daily. N.p.o. except medications after midnight. Continue telemetry monitoring. Subjective Patient seen and examined at the bedside. Feeling well from a cardiovascular standpoint. Telemetry demonstrates sinus rhythm with occasional PACs. Repeat ECG demonstrates sinus bradycardia with normal QT interval. Patient denies palpitations or chest discomfort. He offers no other concerns/complaints this time. Review of Systems Review of Systems: All systems reviewed & are unremarkable except as noted in HPI & below Physical Exam Constitutional: well developed and well nourished; no acute distress and not ill appearing Respiratory: normal respiratory effort; no respiratory distress, no labored breathing, no retractions and does not use accessory muscles Cardiovascular: Rate/Rhythm: regular rate, regular rhythm and + bradycardic Heart Sounds: normal S1 and normal S2; no murmur Vessels: no JVD and no carotid bruit Extremities: no edema Gastrointestinal (Abdomen): Inspection/Auscultation: abdomen normal to inspection and normal bowel sounds; abdomen not distended Percussion/Palpation: abdomen soft; abdomen nontender, no guarding and abdomen not rigid Musculoskeletal: Extremities: strength 5/5 throughout Skin: no rashes, warm and dry Neurologic: moves all extremities; no focal motor deficits Speech / Cognition: normal speech Motor/Sensory: no tremor Psychiatric: A+Ox3, euthymic affect Results & Data Vital Signs (Past 12 Hours) Vital Signs Temp Pulse Resp BP Pulse Ox 10/27/19 11:11 36.7 C 50 L 19 154/67 H 98 10/27/19 06:53 36.7 C 51 L 20 146/75 H 97 10/27/19 03:30 36.7 C 50 L 16 126/69 97
[2019-10-28] MEDS: HEPARIN SOD 5,000 UNIT/0.5 ML VIAL SQ SCH ×3 (06:41→21:23)
[2019-10-28 06:50] LABS: Basophils # (auto) 0.03 K/uL (0-0.2); Basophils % (auto) 0.5 %; Eosinophils # (auto) 0.35 K/uL (0-0.5); Eosinophils % (auto) 6.3 %; Hematocrit (blood only) 46.2 % (42-52); Immature Granulocytes # (auto) 0.02 K/uL (0.00-0.02); Immature Granulocytes % (auto) 0.4 %; Lymphocytes # (auto) 0.64 K/uL (1.2-3.4); Lymphocytes % (auto) 11.6 %; Mean Corpuscular Hemoglobin 29.6 pg (25-34); Mean Corpuscular Hgb Conc 32.5 g/dL (32-36); Mean Corpuscular Volume 91.3 fL (80-100); Mean Platelet Volume 10.4 fL (7.4-10.4); Monocytes # (auto) 0.61 K/uL (0.11-0.59); Neutrophils # (auto) 3.88 K/uL (1.4-6.5); Neutrophils % (auto) 70.2 %; Platelet Count 251 K/uL (130-400); RDW Coefficient of Variation 13.2 % (11.5-14.5); RDW Standard Deviation 44.2 fL (36.4-46.3); Red Blood Count 5.06 M/uL (4.7-6.1); White Blood Count 5.53 K/uL (4.8-10.8)
--- NOTE | 2019-10-28 07:15 | Pre Anesthesia Assessment ---
Date of Service October 28, 2019 Pre Sedation Assessment Vital Signs Temp Pulse Resp BP Pulse Ox 10/28/19 04:14 36.8 C 54 L 16 135/66 98 10/27/19 23:29 36.8 C 61 18 154/77 H 96 10/27/19 19:01 37.0 C 59 L 18 122/66 96 10/27/19 15:05 36.5 C 54 L 98 H 146/79 H 98 10/27/19 11:11 36.7 C 50 L 19 154/67 H 98 Cardiovascular + regular rate and + bradycardic Respiratory + respiratory effort normal Pre-Sedation Airway Assessment Smoking Status: Never smoker Hx Sleep Apnea: No Hx Difficult Intubation: No Short, Thick Neck: No Thyromental Distance: > or= 3.5 Finger Breadths Mallampati Class: III ASA: ASA3 Procedure Planning Contraindications for Sedation: none Current Medications Reviewed: Yes Notes The planned sedation has been discussed with the patient. Informed Consent was obtained. I have identified the patient, determined the appropriateness of sedation and have assessed the patient immediately prior to the procedure. All medicine(s) and interventions are by my order.
[2019-10-28] MEDS ORDERED: MIDAZOLAM HCL 5 MG/ML 1 ML VIAL ONE ×2 (07:34→09:17)
[2019-10-28] MEDS ORDERED: fentaNYL citrate 100 MCG/2 ML VIAL ONE ×2 (07:34→08:59)
--- NOTE | 2019-10-28 07:42 | Hospitalist Progress Note ---
Date of Service October 28, 2019 Assessment & Plan (1) SVT (supraventricular tachycardia): Pt is 79 y/o M without known significant PMH presented to ER via EMS for syncopal episode today. was walking outside when he started feeling dizzy and then pt woke up on ground. His neighbor saw him have syncopal episode and fall and was able to assist him up off the ground. EMS arrived and found pt in SVT. It is reported vagal maneuver attempted and unsuccessful and then pt was given adenosine 6mg with brief break in SVT, then followed by 12mg and additional 12mg adenosine with return to sinus rhythm. In ER pt afebrile, P: 176 down to 76, R: 18, BP: 152/101 to 140/85, 96% on RA. In ER pt with HR in 170's, SVT and vagal maneuver preformed with conversion to sinus rhythm. WBC: 4.75, H/H: 15/45, K: 4.2, Phosphate: 1.7, Magnesium: 2.2, TSH: 1.7, Troponin: 0.019 -14 beat run of wide-complex tachycardia occurred overnight 10/22 during sleep, consistent with SVT with aberrant conduction versus nonsustained ventricular tachycardia. 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, Ablation today (3) Hypophosphatemia: Phosphate: Low -Replace and monitor prn DVT Prophylaxis -Heparin SQ DNR/DNI Does not have PCP for routine care, wants a [facility] PCP Will f/u c Cards on DC Labs checked ROS-No Headache, No Visual Changes, No Nausea, No Vomiting, No Fever, No Chills, No Neck Pain or Stiffness, No Chest Pain, No Palpitations, No SOB, No KEENAN, No Cough, No Sputum, No Wheezing, No Abdominal Pain, No Diarrhea, No Hematemesis, No Hemoptysis, No Unexpected Weight Loss, No Flank pain, No Melena, No Hematochezia, No Frequency, No Urgency, No Burning, No Hematuria, No Rashes, No Diaphoresis. Appetite is Normal Physical Exam Gen-AAO x 3, NAD, Afebrile Head-NCAT, EOMI, PERRLA, Anicteric Sclera, No Posterior Pharyngeal Erythema Neck-Supple, No JVD, No Thyromegaly, No Masses, No LAD, No Bruits Lungs-Clear to Auscultation Bilaterally, No Rales, No Rhonchi, No Wheezing, No Crepitus Chest-No S4, +S1, +S2, No S3, No Murmurs, No Rubs, No Gallops, No Ectopy Abdomen-Soft, Bowel Sounds Present, Non Tender, Non Distended, No Hepatomegaly, No Splenomegaly, No Palpable Masses, No Rebound, No Rigidity, No Guarding Musculoskeletal-Full Range of Motion Bilaterally, No CVAT Extremities-No Cyanosis, No Clubbing, No Edema Nuero-Cranial Nerves II-XII grossly intact, Motor WNL, DTRs WNL, Strength WNL, Non Focal Psych-Normal Mood Admission and Anticipated Discharge Date Admission Date: October 23, 2019 Anticipated date of discharge: 10/29/19 Results & Data Results & Data ([facility]) Vital Signs (Past 12 Hours) Vital Signs Temp Pulse Resp BP Pulse Ox 10/28/19 07:18 54 L 20 154/72 H 97 10/28/19 04:14 36.8 C 54 L 16 135/66 98 10/27/19 23:29 36.8 C 61 18 154/77 H 96 (1) Syncope Syncope type: unspecified Qualified Code(s): R55 - Syncope and collapse
[2019-10-28] MEDS ORDERED: ISOPROTERENOL HCL 0.2 MG/ML 5 ML AMP IV ONE (08:53)
[2019-10-28] MEDS ORDERED: ACETAMINOPHEN 325 MG TAB PO PRN (09:31)
--- NOTE | 2019-10-28 09:31 | Electrophysiology Report ---
Date of Service October 28, 2019 Electrophysiology Procedure Electrophysiology Procedure Report Procedure performed: Ablation of SVT, complete electrophysiologic testing including pacing from the left atrium via the coronary sinus, arrhythmia induction using programmed stimulation on and off isoproterenol, ultrasound- guided vascular access, mapping of tachycardia sites using a roving catheter Staff marketing services coordinator: Edgar Tijerina MD Indication: The patient is an 79-year-old gentleman with a history of syncope and SVT. Based on the recurrent and symptomatic nature of his SVTs healthy good candidate for catheter based therapy. Procedure detail: The patient was informed of the risks benefits and alternatives to the intended procedure. He understood which proceed. He is taken to the electrophysiology suite in a fasting state. Conscious sedation was administered per protocol the patient was monitored electrocardiographically throughout today's procedure. The right femoral right internal jugular area was reprepped and draped in usual sterile fashion. These areas were anesthetized using subcutaneous menstruation of the lidocaine solution. The right internal jugular vein was subtotally access using modified Seldinger technique under ultrasound guidance and a 6 Fr ench venous sheath was placed at the site over guidewire. Right femoral vein was accessed 3 times using modified Seldinger technique. Sheaths were placed over guidewires at this site use facilitate passage of the EP catheters to the respective chambers under fluoroscopic guidance. This included his bundle, coronary sinus and right ventricular catheters. The patient's baseline conduction system was characterize. Programmed stimulation was then used to induce a tachycardia. The element of the tachycardia were then identified and once there were no a radiofrequency ablation catheter was advanced to the area of interest and tachycardia sites mapped. Radiofrequency lesions were placed with good power and temperature at several sites in the right atrium. Subsequent to ablation repeat electrophysiologic testing was performed. Attempts at arrhythmia induction were also performed using program stimulation and isoproterenol. At the conclusion of the case the sheath and catheters were removed. Hemostasis was achieved at the access site using manual pressure. The patient tolerated procedure well. There were no immediate complications. Findings: Baseline intracardiac intervals Cycling the atrium 1203 milliseconds Cycling the ventricle 1214 milliseconds MN interval 167 milliseconds QRS duration 60 milliseconds QT interval 346 milliseconds H interval 104 milliseconds HV interval 64 milliseconds In the baseline sedated state AV Wenckebach occurred at 450 milliseconds Retrograde AV antony Wenckebach occurred at 350 milliseconds Program stimulation from the ventricle revealed concentric and decremental conduction with a ventricular refractory period of 260 milliseconds In the baseline state there was evidence of dual AV antony physiology Refractory period of the fast pathway was 430 milliseconds Refractory. 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 Radiofrequency lesions were placed with good power and temperature and multiple junctional beats around this area. Multiple applications were made. Post ablation intervals Cycle length in the atrium 864 milliseconds Cycling the ventricle 847 milliseconds MN interval 160 milliseconds QRS duration 71 milliseconds QT interval 384 milliseconds H interval 80 milliseconds HV interval 50 milliseconds Av Wenckebach occurred at 390 milliseconds There is no evidence of slow pathway conduction subsequent to ablation The refractory period of the fast pathway was 340 milliseconds There were no echo beats with program stimulation on or off isoproterenol No tachycardia was inducible post ablation despite aggressive programmed stimulation and infusion of isoproterenol Impression: Successful modification of the slow inputs to the AV node returning typical slow fast AV antony reentry noninducible No evidence of slow pathway conduction at the conclusion of the procedure No echo beats at the conclusion of the procedure Slightly elevated AV Wenckebach in the baseline sedated state Otherwise normal intracardiac conduction No evidence of sensory pathway conduction [facility] Electrophysiology codes EP Procedure 1: Electrophysiology: 72232 EPS and Ablation SVT Procedure 2: Electrophysiology: 94402 Catheter mapping Procedure 3: Electrophysiology: 64124 Arrhythmia induction Procedure 4: Electrophysiology: 32675 Drug Stimulation Procedure 5: Electrophysiology: 92746-58 Comp EPS w/LA pacing PG Moderate Sedation Codes Moderate Sedation Codes Procedure 1: Sedation/Anesthesia: 59815 Mod Sedation by the same physician;Init15 Min Child Age 5 & Up Procedure 2: Sedation/Anesthesia: 43882 Mod Sedation by the same physician; Ea [id number] Minutes
--- NOTE | 2019-10-28 09:32 | Post Anesthesia Assessment ---
Date of Service October 28, 2019 Post Sedation Assessment Vital Signs Temp Pulse Resp BP Pulse Ox 10/28/19 07:18 54 L 20 154/72 H 97 10/28/19 04:14 36.8 C 54 L 16 135/66 98 10/27/19 23:29 36.8 C 61 18 154/77 H 96 10/27/19 19:01 37.0 C 59 L 18 122/66 96 10/27/19 15:05 36.5 C 54 L 98 H 146/79 H 98 10/27/19 11:11 36.7 C 50 L 19 154/67 H 98 Recovery Score Activity: Moves 4 extremities Respiration: Deep Breath/Cough Circulation: +/-20% PreAnes Value Consciousness: Fully Awake Oxygen Saturation: > 92% On Room Air Discharge Sedation Level of Care: Fast Track Phase II Post Sedation Plan On clinical assessment, the patient appears to have tolerated the sedation without complications. Patient is recovering as anticipated. Patient will continue to be monitored by nursing and may be discharged when sedation discharge criteria are met per below protocol. Upon Completions of procedure up to 15 minutes continue every 5 minute vital signs and the P.A.R. score; then discharge to a Phase I or Fast Track to Phase II per the following guidelines: * Discharge Patient to appropriate Phase II area if PAR is 8 or greater or return to pre- procedure baseline. The post - procedure orders will be as directed. * If PAR score is less than 8 or not return to pre-procedure baseline then patient will follow Phase I monitoring till PAR is reached for Phase II. The Phase I may be done in procedure room or may call to secure a Phase I area. * If naloxone or flumazenil are used for reversal, hold in Phase I for continued monitoring from when last reversal dose was given for a minimum of 60 minutes or longer pending the nurse and/or physician discretion of patient condition before discharge to Phase II. Please call the Sedation Physician to re-evaluate and complete post-note for discharge to Phase II area. Do NOT discharge from procedure sedation or Phase 1 until post- sedation evaluation note is complete by procedure /sedation MD Sedation Discharge Instructions to be given to the patient at discharge to home.
--- NOTE | 2019-10-28 12:25 | Cardiology Progress Note ---
Date of Service October 28, 2019 Assessment & Plan (1) Syncope and collapse: (2) SVT (supraventricular tachycardia): Status post EPS study/ablation for SVT. Sinus rhythm on telemetry. Discontinue sotalol. Outpatient cardiology follow-up in 2 to 4 weeks. Subjective Patient seen and examined at bedside. No recurrent SVT per telemetry. Denies chest pain, palpitations, or shortness of breath. EPS/ablation performed this morning without complication. Sotalol discontinued. Patient offers no concerns/complaints. Review of Systems Review of Systems: All systems reviewed & are unremarkable except as noted in HPI & below Physical Exam Constitutional: well developed and well nourished; no acute distress and not ill appearing Respiratory: normal respiratory effort; no respiratory distress, no labored breathing, no retractions and does not use accessory muscles Cardiovascular: Rate/Rhythm: regular rate, regular rhythm and + bradycardic Heart Sounds: normal S1 and normal S2; no murmur Vessels: no JVD and no carotid bruit Extremities: no edema Gastrointestinal (Abdomen): Inspection/Auscultation: abdomen normal to inspection and normal bowel sounds; abdomen not distended Percussion/Palpation: abdomen soft; abdomen nontender, no guarding and abdomen not rigid Musculoskeletal: Extremities: strength 5/5 throughout Skin: no rashes, warm and dry Neurologic: moves all extremities; no focal motor deficits Speech / Cognition: normal speech Motor/Sensory: no tremor Psychiatric: A+Ox3, euthymic affect Results & Data Vital Signs (Past 12 Hours) Vital Signs Temp Pulse Resp BP Pulse Ox 10/28/19 11:16 36.4 C L 60 18 120/72 97 10/28/19 10:46 61 18 133/74 97 10/28/19 10:16 60 20 135/77 96 10/28/19 10:00 52 L 18 106/65 97 10/28/19 09:45 54 L 18 130/69 95 10/28/19 07:18 54 L 20 154/72 H 97 10/28/19 04:14 36.8 C 54 L 16 135/66 98
[2019-10-29 05:58] LABS: Hematocrit (blood only) 44.3 % (42-52); Hemoglobin 14.7 g/dL (14.0-18.0); Mean Corpuscular Hemoglobin 29.9 pg (25-34); Mean Corpuscular Hgb Conc 33.2 g/dL (32-36); Mean Corpuscular Volume 90.2 fL (80-100); Mean Platelet Volume 10.2 fL (7.4-10.4); Platelet Count 179 K/uL (130-400); RDW Coefficient of Variation 13.2 % (11.5-14.5); RDW Standard Deviation 43.2 fL (36.4-46.3); Red Blood Count 4.91 M/uL (4.7-6.1); White Blood Count 5.27 K/uL (4.8-10.8)
[2019-10-29] MEDS: HEPARIN SOD 5,000 UNIT/0.5 ML VIAL SQ SCH (06:06)
[2019-10-29 06:27] LABS: BUN Creatinine Ratio 19.4 (10-20); Calcium 8.2 mg/dl (8.5-10.1); Creatinine Clr Calc Pharmacy 53.5 ml/min; Est GFR (African American) 79.1; Est GFR (Non-African American) 68.3; Potassium 4.2 mmol/L (3.5-5.1)
--- NOTE | 2019-10-29 09:23 | Discharge Summary ---
Date of Service October 29, 2019 Admission HPI Per Admitting Provider Pt is 79 y/o M without known significant PMH presented to ER via EMS for syncopal episode today. Pt reports for past 10 years has been having intermittent episodes of feeling hot, lightheaded/dizzy with "quivering" sensat ion to left chest that lasts approx 10 minutes and self resolves. Can occur with activity or rest. Pt states sometimes will have multiple episodes a day. Has never had any associated CP, SOB or syncope in past. Pt states today was fishing in the morning and had a hot and dizzy episode. Later today was walking outside when he started feeling dizzy and then pt woke up on ground. His neighbor saw him have syncopal episode and fall and was able to assist him up off the ground. EMS arrived and found pt in SVT. It is reported vagal maneuver attempted and unsuccessful and then pt was given adenosine 6mg with brief break in SVT, then followed by 12mg and additional 12mg adenosine with return to sinus rhythm. In ER pt with HR in 170's, SVT and vagal maneuver preformed with conversion to sinus rhythm. Pt states was having dizziness, sweats and palpitations but since arrival to ER that has resolved. Pt reports drinks 3 cups coffee daily. Takes [place] prn at HS for sleep and last took 2 days ago. Sometimes uses 1 OTC Aleve daily for leg pain. Denies other OTC med or herbal supplement use. Pt states not seen PCP since 2000. He reports in 1988 he had echo and exercise stress test for dizzy episodes, pt unsure of results. Denies any injury with fall. Denies fever/chills, diaphoresis, N/V/D/C, FIORE, vision changes, neck pain, orthopnea, cough, sore throat, choking, otalgia, rhinorrhea, abdominal pain, paresthesias, weakness, extremity weakness, extremity edema, rashes, urinary symptoms. Admission Exam Per Admitting Provider General: no distress, WDWN Head: normocephalic, atraumatic Eyes: PERRL, EOM's intact, conjunctiva non-injected, anicteric ENT: normal inspection external ears, nose, mucous membranes moist Neck: supple, trachea midline Lungs: clear, no respiratory distress, no wheezing/rhonchi/rales CV: RRR, no murmur, no pretibial edema Abd: normal BS, soft, non-tender Ext: no cyanosis, no calf tenderness Neuro: A&O x 3, no focal deficits noted, normal affect Skin: warm, dry Principal Diagnosis SVT (supraventricular tachycardia): Syncope: Hypophosphatemia: Discharge Exam ROS-No Headache, No Visual Changes, No Nausea, No Vomiting, No Fever, No Chills, No Neck Pain or Stiffness, No Chest Pain, No Palpitations, No SOB, No KEENAN, No Cough, No Sputum, No Wheezing, No Abdominal Pain, No Diarrhea, No Hematemesis, No Hemoptysis, No Unexpected Weight Loss, No Flank pain, No Melena, No Hematochezia, No Frequency, No Urgency, No Burning, No Hematuria, No Rashes, No Diaphoresis. Appetite is Normal Physical Exam Gen-AAO x 3, NAD, Afebrile Head-NCAT, EOMI, PERRLA, Anicteric Sclera, No Posterior Pharyngeal Erythema Neck-Supple, No JVD, No Thyromegaly, No Masses, No LAD, No Bruits Lungs-Clear to Auscultation Bilaterally, No Rales, No Rhonchi, No Wheezing, No Crepitus Chest-No S4, +S1, +S2, No S3, No Murmurs, No Rubs, No Gallops, No Ectopy Abdomen-Soft, Bowel Sounds Present, Non Tender, Non Distended, No Hepatomegaly, No Splenomegaly, No Palpable Masses, No Rebound, No Rigidity, No Guarding Musculoskeletal-Full Range of Motion Bilaterally, No CVAT Extremities-No Cyanosis, No Clubbing, No Edema Nuero-Cranial Nerves II-XII grossly intact, Motor WNL, DTRs WNL, Strength WNL, Non Focal Psych-Normal Mood Discharge Data Allergies Allergy/AdvReac Type Severity Reaction Status Date / Time No Known Allergies Allergy Unverified 10/23/19 13:53 Consultations 10/23/19 14:35 ED Decision to Admit Stat 10/23/19 16:35 Consult Cardiology Routine Consult Case Management - Discharge Planning Routine 10/25/19 09:54 Consult Cardiac Electrophysiology Routine Procedures Performed Operation Date: 10/28/19 08:00 Actual Procedures s Cineradiography w/Routine Exam - Tab Tijerina MD p EPS + Ablation for SVT Flutter - Tab Tijerina MD s Drug Stimulation - MD ishaan Johnson [place] Pacing (Add-On) - MD ishaan Johnson Ultrasound Vascular Access - Tab Tijerina MD Ordered Studies 10/28/19 07:00 EP Lab Images for PACS ONCE Current Diagnoses 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 was walking outside when he started feeling dizzy and then pt woke up on ground. His neighbor saw him have syncopal episode and fall and was able to assist him up off the ground. EMS arrived and found pt in SVT. It is reported vagal maneuver attempted and unsuccessful and then pt was given adenosine 6mg with brief break in SVT, then followed by 12mg and additional 12mg adenosine with return to sinus rhythm. In ER pt afebrile, P: 176 down to 76, R: 18, BP: 152/101 to 140/85, 96% on RA. In ER pt with HR in 170's, SVT and vagal maneuver preformed with conversion to sinus rhythm. WBC: 4.75, H/H: 15/45, K: 4.2, Phosphate: 1.7, Magnesium: 2.2, TSH: 1.7, Troponin: 0.019 -14 beat run of wide-complex tachycardia occurred overnight 10/22 during sleep, consistent with SVT with aberrant conduction versus nonsustained ventricular tachycardia. 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, Ablation today (3) Hypophosphatemia: Phosphate: Low -Replace and monitor prn DVT Prophylaxis -Heparin SQ DNR/DNI Does not have PCP for routine care, wants a [facility] PCP Will f/u c Cards in 2 weeks Labs checked Total Time Total Time Spent Total Time Spent (In Minutes): 45 mins Total Time Includes: Examination of the Patient, Discharge Planning, Medication Reconciliation and Communication With Other Providers Discharge Plan Discharge Items Patient Disposition: Home - Self-Care Reason For Visit: SYNCOPE,SVT Discharge Diagnosis: SVT (supraventricular tachycardia): Syncope: Hypophosphatemia: Condition on Discharge: Good Activity: Resume your previous activity Lifting: Gradually increase as tolerated Bathing: No limitations Sexual Activity: When tolerated Exercise/Sports: Gradually increase as tolerated Driving/Machine Use: No limitations Weightbearing: Full weightbearing Non-emergency contact: Primary Care Provider and Mold Cutting Machine Operator Call non-emergency contact if: you have any medication questions Follow-up/Referrals: Azael Macias MD [Physician] - 10/31/19 11:20 am (10/31/2019 11:20 AM Provider Felix Prasad MD Department Family Practice [facility] Please note, this appointment is in [place]. The [place] office is temporarily closed due to the Covid Pandemic. Dr. Macias did not have any openings this week, but you can schedule with him for your next appointment.) Samuel Olivares MD [Physician] - (2 weeks) Enrique Mcintyre DO [M[employer] Cutting Machine Operator] - (2 weeks) Diet: Regular Addtl Attending Provider Instructions: None Pending Studies at Discharge: No Stand-Alone Forms: [employer], Smoking Cessation Medications and DC Order Prescriptions: Continued naproxen sodium [Aleve] 220 mg Tablet 220 mg PO BID PRN (Reason: Pain) RF: 0 Discharge Orders: Discharge Order (Routine); Ordered 10/29/19 Ordered By: Daniel Narayanan Admission Data Admit Date/Time: 10/23/19 14:54 Attending Provider: Daniel Narayanan Admit Provider: Lady,Daniel Primary Care Provider: PCP,NO Other Providers: Daniel Narayanan ; Enrique Mcintyre ; Samuel Olivares.
--- NOTE | 2019-10-29 11:04 | Cardiology Progress Note ---
Date of Service October 29, 2019 Assessment & Plan (1) SVT (supraventricular tachycardia): (2) Syncope and collapse: (3) PVC (premature ventricular contraction): Status post EPS study/ablation for SVT. Sinus rhythm on telemetry with occasional PVCs. No further inpatient cardiology testing at this time. Outpatient cardiology follow-up in 2 to 4 weeks. Subjective Patient seen and examined at the bedside. Notes occasional palpitation ov ernight. Symptoms last less than 2 seconds. Telemetry demonstrates sinus rhythm with occasional PVCs. No recurrence of supraventricular tachycardia. Sotalol discontinued. Denies chest pain, shortness of breath, or lightheadedness. Tolerating diet. No nausea, or abdominal discomfort. Anxious for discharge. Review of Systems Review of Systems: All systems reviewed & are unremarkable except as noted in HPI & below Physical Exam Constitutional: well developed and well nourished; no acute distress and not ill appearing Respiratory: normal respiratory effort; no respiratory distress, no labored breathing, no retractions and does not use accessory muscles Cardiovascular: Rate/Rhythm: regular rate, regular rhythm and + bradycardic Heart Sounds: normal S1 and normal S2; no murmur Vessels: no JVD and no carotid bruit Extremities: no edema Gastrointestinal (Abdomen): Inspection/Auscultation: abdomen normal to inspection and normal bowel sounds; abdomen not distended Percussion/Palpation: abdomen soft; abdomen nontender, no guarding and abdomen not rigid Musculoskeletal: Extremities: strength 5/5 throughout Skin: no rashes, warm and dry Neurologic: moves all extremities; no focal motor deficits Speech / Cognit ion: normal speech Motor/Sensory: no tremor Psychiatric: A+Ox3, euthymic affect Results & Data Vital Signs (Past 12 Hours) Vital Signs Temp Pulse Pulse Resp BP Pulse Ox 10/29/19 09:52 36.5 C 84 16 109/70 96 10/29/19 08:00 88 10/29/19 07:38 36.5 C 84 16 109/70 96 10/29/19 03:35 37.1 C 59 L 16 122/72 96 10/29/19 00:03 58 L 10/28/19 23:08 37.1 C 61 18 120/69 96
--- NOTE | 2019-10-29 11:33 | Electrocardiogram Report ---
Test Reason : Blood Pressure : / mmHG Vent. Rate : 061 BPM Atrial Rate : 061 BPM P-R Int : 164 ms QRS Dur : 084 ms QT Int : 424 ms P-R-T Axes : 051 -20 043 degrees QTc Int : 426 ms Normal sinus rhythm Normal ECG When compared with ECG of 27-OCT-2019 06:52, No significant change was found Confirmed by Samuel Olivares ([id number]) on 10/29/2019 11:32:57 AM Referred By: REFERRED SELF Confirmed By:Samuel Olivares
== END 2019-10-29 11:31 | disposition home or self-care (01) | DRG 274 ==
LOC: ED 12:57 → 2S 14:54